=== PATIENT | male | born 1935 | race Caucasian/White ===

== ENCOUNTER 2016-06-03 01:48 | Outpatient (CLI) | payer MEDICARE, BC ==
[2016-06-03] MEDS ORDERED: SODIUM CHLORIDE FLUSH 0.9% 10 ML SYRINGE IVP PRN (08:05)
[2016-06-03] MEDS ORDERED: ONDANSETRON ODT 4 MG TABLET TL PRN (08:05)
[2016-06-03] MEDS ORDERED: ACETAMINOPHEN 325 MG TABLET PO PRN (08:05)
[2016-06-03] MEDS ORDERED: POLYETHYLENE GLYCOL 3350 17 GM PACKET PO SCH (09:00)
[2016-06-03] MEDS ORDERED: FAMOTIDINE 20 MG TABLET PO SCH (09:00)
[2016-06-03] MEDS ORDERED: SODIUM CHLORIDE 0.9% 1,000 ML IV SCH (09:00)
[2016-06-03] MEDS ORDERED: PIPERACILLIN/TAZOBACTAM 3.375 GM in SODIUM CHLORIDE 0.9% MINIBAG 100 ML IV SCH (09:00)
[2016-06-03] MEDS ORDERED: ENOXAPARIN 40 MG/0.4 ML SYRINGE SUBQ SCH (09:00)
[2016-06-03] MEDS ORDERED: SODIUM CHLORIDE FLUSH 0.9% 10 ML SYRINGE IVP SCH (14:00)
[2016-06-03] MEDS ORDERED: SACCHAROMYCES BOULARDII 250 MG CAPSULE PO SCH (17:00)
== END 2016-06-03 01:49 | disposition critical access hospital (66) ==
DX: R53.1 Weakness (principal); R11.0 Nausea
CPT/HCPCS: 87040; A0425; A0427

== ENCOUNTER 2016-06-03 02:03 | Inpatient (IN) | payer MEDICARE, BC ==
[2016-06-03] MEDS ORDERED: SODIUM CHLORIDE 0.9% 500 ML IV STA (02:25)
[2016-06-03] MEDS ORDERED: ONDANSETRON ODT 4 MG TABLET TL PRN (09:40)
[2016-06-03] MEDS ORDERED: SODIUM CHLORIDE FLUSH 0.9% 10 ML SYRINGE IVP PRN (09:40)
[2016-06-03] MEDS ORDERED: PIPERACILLIN/TAZOBACTAM 3.375 GM in SODIUM CHLORIDE 0.9% MINIBAG 100 ML IV ONE ×2 (09:40→11:30)
[2016-06-03] MEDS: SODIUM CHLORIDE 0.9% 1,000 ML IV SCH ×2 (11:41→20:46)
[2016-06-03] MEDS: FAMOTIDINE 20 MG TABLET PO SCH (11:42)
[2016-06-03] MEDS: ENOXAPARIN 40 MG/0.4 ML SYRINGE SUBQ SCH (11:42)
[2016-06-03] MEDS: amLODIPine 5 MG TABLET PO SCH ×2 (11:49→20:43)
[2016-06-03] MEDS: SODIUM CHLORIDE FLUSH 0.9% 10 ML SYRINGE IVP SCH ×2 (14:30→21:53)
[2016-06-03] MEDS: PIPERACILLIN/TAZOBACTAM 3.375 GM in SODIUM CHLORIDE 0.9% MINIBAG 100 ML IV SCH (16:33)
[2016-06-03] MEDS: SACCHAROMYCES BOULARDII 250 MG CAPSULE PO SCH (17:09)
[2016-06-03] MEDS: ACETAMINOPHEN 325 MG TABLET PO PRN (20:44)
[2016-06-03] MEDS ORDERED: amLODIPine 5 MG TABLET PO SCH (21:00)
[2016-06-04] MEDS: PIPERACILLIN/TAZOBACTAM 3.375 GM in SODIUM CHLORIDE 0.9% MINIBAG 100 ML IV SCH ×2 (00:46→08:01)
[2016-06-04] MEDS: ACETAMINOPHEN 325 MG TABLET PO PRN ×3 (00:51→21:33)
[2016-06-04] MEDS: FAMOTIDINE 20 MG TABLET PO SCH (08:12)
[2016-06-04] MEDS: SACCHAROMYCES BOULARDII 250 MG CAPSULE PO SCH ×2 (08:12→17:22)
[2016-06-04] MEDS: POLYETHYLENE GLYCOL 3350 17 GM PACKET PO SCH (08:13)
[2016-06-04] MEDS: ENOXAPARIN 40 MG/0.4 ML SYRINGE SUBQ SCH (08:13)
[2016-06-04] MEDS: amLODIPine 5 MG TABLET PO SCH ×2 (08:13→21:33)
[2016-06-04] MEDS ORDERED: POTASSIUM CHLORIDE 20 MEQ TABLET PO STA (09:43)
[2016-06-04] MEDS: SODIUM CHLORIDE FLUSH 0.9% 10 ML SYRINGE IVP SCH ×3 (09:45→21:35)
[2016-06-04] MEDS: SODIUM CHLORIDE 0.9% 1,000 ML IV SCH ×2 (10:08→22:17)
[2016-06-05] MEDS: ACETAMINOPHEN 325 MG TABLET PO PRN (02:06)
[2016-06-05] MEDS: SODIUM CHLORIDE FLUSH 0.9% 10 ML SYRINGE IVP SCH ×3 (05:30→20:28)
[2016-06-05] MEDS: amLODIPine 5 MG TABLET PO SCH ×2 (08:18→20:28)
[2016-06-05] MEDS: SODIUM CHLORIDE 0.9% 1,000 ML IV SCH (08:18)
[2016-06-05] MEDS: SACCHAROMYCES BOULARDII 250 MG CAPSULE PO SCH ×2 (08:19→17:21)
[2016-06-05] MEDS: FAMOTIDINE 20 MG TABLET PO SCH (08:19)
[2016-06-05] MEDS: ENOXAPARIN 40 MG/0.4 ML SYRINGE SUBQ SCH (08:20)
[2016-06-05] MEDS: POLYETHYLENE GLYCOL 3350 17 GM PACKET PO SCH (08:22)
[2016-06-05] MEDS ORDERED: POTASSIUM CHLORIDE INJ 40 MEQ in SODIUM CHLORIDE 0.9% 1,000 ML IV SCH (09:00)
[2016-06-05] MEDS: POTASSIUM CHLOR 10 MEQ/100 ML 100 ML IV SCH ×4 (10:10→13:50)
[2016-06-05] MEDS ORDERED: POTASSIUM CHLOR 10 MEQ/100 ML 100 ML IV SCH (14:00)
[2016-06-05] MEDS: CALCIUM CARBONATE CHEW 500 MG TABLET PO PRN (21:46)
[2016-06-06] MEDS: ACETAMINOPHEN 325 MG TABLET PO PRN ×2 (00:04→21:20)
[2016-06-06] MEDS: SODIUM CHLORIDE FLUSH 0.9% 10 ML SYRINGE IVP SCH ×3 (06:23→21:18)
[2016-06-06] MEDS: POLYETHYLENE GLYCOL 3350 17 GM PACKET PO SCH (08:43)
[2016-06-06] MEDS: SACCHAROMYCES BOULARDII 250 MG CAPSULE PO SCH ×2 (08:44→17:55)
[2016-06-06] MEDS: FAMOTIDINE 20 MG TABLET PO SCH (08:44)
[2016-06-06] MEDS: amLODIPine 5 MG TABLET PO SCH ×2 (08:45→21:18)
[2016-06-06] MEDS: ENOXAPARIN 40 MG/0.4 ML SYRINGE SUBQ SCH (08:46)
[2016-06-06] MEDS: POTASSIUM CHLOR 10 MEQ/100 ML 100 ML IV SCH ×4 (08:58→13:43)
[2016-06-06] MEDS ORDERED: MAGNESIUM HYDROXIDE 2,400 MG/30 ML UDC PO ONE (15:43)
[2016-06-06] MEDS: SENNA 8.6 MG TABLET PO SCH (17:56)
[2016-06-06] MEDS: DOCUSATE SODIUM 250 MG CAPSULE PO SCH (17:56)
[2016-06-07] MEDS: SODIUM CHLORIDE FLUSH 0.9% 10 ML SYRINGE IVP SCH ×3 (01:48→21:50)
[2016-06-07] MEDS: ACETAMINOPHEN 325 MG TABLET PO PRN ×2 (01:48→21:49)
[2016-06-07] MEDS ORDERED: POTASSIUM CHLORIDE 20 MEQ TABLET PO STA ×2 (08:25→09:35)
[2016-06-07] MEDS ORDERED: DOCUSATE SODIUM 250 MG CAPSULE PO SCH (09:00)
[2016-06-07] MEDS ORDERED: SENNA 8.6 MG TABLET PO SCH (09:00)
[2016-06-07] MEDS: POLYETHYLENE GLYCOL 3350 17 GM PACKET PO SCH (09:44)
[2016-06-07] MEDS: SENNA 8.6 MG TABLET PO SCH (09:45)
[2016-06-07] MEDS: FAMOTIDINE 20 MG TABLET PO SCH (09:45)
[2016-06-07] MEDS: amLODIPine 5 MG TABLET PO SCH ×2 (09:45→21:49)
[2016-06-07] MEDS: SACCHAROMYCES BOULARDII 250 MG CAPSULE PO SCH ×2 (09:46→17:14)
[2016-06-07] MEDS: CALCIUM CITRATE 250 MG TABLET PO SCH ×4 (09:47→23:57)
[2016-06-07] MEDS: DOCUSATE SODIUM 250 MG CAPSULE PO SCH (09:49)
[2016-06-07] MEDS: ENOXAPARIN 40 MG/0.4 ML SYRINGE SUBQ SCH (09:51)
[2016-06-07] MEDS: CALCIUM CARBONATE CHEW 500 MG TABLET PO PRN (17:14)
[2016-06-08] MEDS: ACETAMINOPHEN 325 MG TABLET PO PRN (03:26)
[2016-06-08] MEDS: SODIUM CHLORIDE FLUSH 0.9% 10 ML SYRINGE IVP SCH (06:28)
[2016-06-08] MEDS: POLYETHYLENE GLYCOL 3350 17 GM PACKET PO SCH (09:25)
[2016-06-08] MEDS: SENNA 8.6 MG TABLET PO SCH (09:26)
[2016-06-08] MEDS: FAMOTIDINE 20 MG TABLET PO SCH (09:26)
[2016-06-08] MEDS: amLODIPine 5 MG TABLET PO SCH (09:27)
[2016-06-08] MEDS: SACCHAROMYCES BOULARDII 250 MG CAPSULE PO SCH (09:27)
[2016-06-08] MEDS: DOCUSATE SODIUM 250 MG CAPSULE PO SCH (09:28)
[2016-06-08] MEDS: CALCIUM CITRATE 250 MG TABLET PO SCH (09:28)
[2016-06-08] MEDS: ENOXAPARIN 40 MG/0.4 ML SYRINGE SUBQ SCH (09:29)
== END 2016-06-08 12:47 | DRG 194 ==
DX: J18.9 Pneumonia, unspecified organism (principal); R53.1 Weakness; R06.00 Dyspnea, unspecified; Z86.12 Personal history of poliomyelitis; E87.1 Hypo-osmolality and hyponatremia; E87.6 Hypokalemia; J84.10 Pulmonary fibrosis, unspecified; E83.51 Hypocalcemia; I10 Essential (primary) hypertension; E86.0 Dehydration; R09.02 Hypoxemia; G83.21 Monoplegia of upper limb affecting right dominant side; B91 Sequelae of poliomyelitis

== ENCOUNTER 2018-04-06 15:41 | Emergency (ER) | payer MEDICARE, BC ==
[2018-04-06 15:49] VITALS: BP 149/61
--- NOTE | 2018-04-06 16:02 | ED Physician Documentation ---
PD HPI UPPER EXT INJURY - Stated complaint Stated Complaint: LF ELBOW/ARM DISCOLORATION - Chief complaint Chief Complaint: Ext Problem - History obtained from History obtained from: Patient, Family - History of Present Illness Location: Left, Elbow (This is an 83-year-old gentleman with history of pulmonary fibrosis, otherwise pretty healthy. He was taking baby aspirin a day but recently stopped. Without specific injury he felt a pulling sensation in the left medial bicep and medial elbow About 2 weeks ago with progressive ecchymosis in that area.) Review of Systems Constitutional: denies: Fever, Chills Nose: reports: Epistaxis GI: denies: Abdominal Pain, Nausea, Vomiting : reports: Reviewed and negative PD PAST MEDICAL HISTORY - Past Medical History Cardiovascular: Hypertension Respiratory: None Endocrine/Autoimmune: None GI: None : None HEENT: Chronic hearing loss Psych: None Musculoskeletal: None Derm: None - Past Surgical History Past Surgical History: Yes General: Appendectomy - Present Medications Home Medications: Ambulatory Orders Medication Instructions Recorded Confirmed amLODIPine [Norvasc] 2.5 mg PO BID 09/02/15 06/03/16 - Allergies Allergies/Adverse Reactions: Allergies Allergy/AdvReac Type Severity Reaction Status Date / Time morphine Allergy Emesis Verified 04/06/18 15:49 - Social History Does the pt smoke?: No Smoking Status: Never smoker Does the pt drink ETOH?: No Does the pt have substance abuse?: No - Immunizations Immunizations are current?: Yes PD ED PE NORMAL - Vitals Vital signs reviewed: Yes - General General: Alert and oriented X 3, No acute distress - Extremities Extremities: Other (There is a large ecchymosis from the mid to distal Left bicep medially extending down over the medial epicondyle of the elbow to the proximal forearm again medially. There is no limited range of motion. He has excellent pulses at the wrist. There is no bony tenderness. He has full strength of the bicep and tricep although some pain with bicep testing. Bedside ultrasound shows that the deep brachial vein in that area is patent and easily compressible throughout.) - Neuro Neuro: Alert and oriented X 3, Normal speech Results - Vitals Vitals: Vital Signs - 24 hr 04/06/18 15:47 Temperature 35.6 C L Heart Rate 87 Respiratory 20 Rate Blood Pressure 149/61 H O2 Saturation 95 Oxygen O2 Source [With Activity] Nasal cannula O2 Source Room air - Labs Labs: Laboratory Tests 04/06/18 04/06/18 16:06 16:06 WBC 9.8 RBC 4.14 L Hgb 13.6 L Hct 41.5 L MCV 100.2 H MCH 32.8 H MCHC 32.7 RDW 13.1 Plt Count 310 MPV 7.2 L Neut # (Auto) 6.1 Lymph # (Auto) 2.2 [place] # (Auto) 1.0 Eos # (Auto) 0.4 Baso # (Auto) 0.1 Absolute Nucleated RBC 0.00 Nucleated RBC % 0.0 PT 12.6 INR 1.1 Departure - Departure Disposition: 01 Home, Self Care Clinical Impression: Traumatic ecchymosis of left upper arm Qualifiers: Encounter type: initial encounter Qualified Code(s): S40.022A - Contusion of left upper arm, initial encounter Condition: Good Record reviewed to determine appropriate education?: Yes Instructions: ED Contusion Upper Ext Comments: Follow-up with your doctor as needed or return for new or worsening symptoms.
[2018-04-06 16:12] LABS: BASOPHILS # (AUTO) 0.1 10^3/uL (0.0-0.1); BASOPHILS % (AUTO) 1.2 %; EOSINOPHILS # (AUTO) 0.4 10^3/uL (0.0-0.7); EOSINOPHILS % (AUTO) 3.8 %; HGB - HEMOGLOBIN 13.6 g/dL (14.0-18.0); LYMPHOCYTES # (AUTO) 2.2 10^3/uL (1.5-3.5); LYMPHOCYTES % (AUTO) 22.1 %; MEAN CORPUSCULAR HEMOGLOBIN 32.8 pg (27.0-31.0); MEAN CORPUSCULAR HGB CONC 32.7 g/dL (32.0-36.0); MEAN CORPUSCULAR VOLUME 100.2 fL (80.0-94.0); MEAN PLATELET VOLUME 7.2 fL (7.4-11.4); MONOCYTES % (AUTO) 10.4 %; NEUTROPHILS # (AUTO) 6.1 10^3/uL (1.5-6.6); NEUTROPHILS % (AUTO) 62.5 %; PLT - PLATELET COUNT 310 10^3/uL (130-450); RED BLOOD COUNT 4.14 10^6/uL (4.70-6.10); RED CELL DISTRIBUTION WIDTH 13.1 % (12.0-15.0); WHITE BLOOD COUNT 9.8 x10^3/uL (4.8-10.8)
[2018-04-06 16:18] LABS: INR 1.1 (0.8-1.2); PT - PROTHROMBIN TIME 12.6 secs (9.9-12.6)
== END 2018-04-06 16:38 | disposition home or self-care (01) ==
LOC: ED 15:41
DX: S40.022A Contusion of left upper arm, initial encounter (principal); I10 Essential (primary) hypertension; J84.10 Pulmonary fibrosis, unspecified; X58.XXXA Exposure to other specified factors, initial encounter
CPT/HCPCS: 36415; 85025; 85610; 99282; 99283

== ENCOUNTER 2018-06-03 09:38 | Outpatient (CLI) | payer MEDICARE, BC | END 2018-06-03 09:39 | disposition short-term general hospital (02) | LOC: EMS 09:38 | PROVIDERS: ATTEND Surgery | DX: R55 Syncope and collapse (principal) | CPT/HCPCS: A0425; A0427 ==

== ENCOUNTER 2018-07-17 16:57 | Outpatient (CLI) | payer MEDICARE, BC | END 2018-07-17 16:58 | disposition critical access hospital (66) | LOC: EMS 16:57 | PROVIDERS: ATTEND Surgery | DX: R06.02 Shortness of breath (principal); R53.1 Weakness | CPT/HCPCS: A0425; A0429 ==

== ENCOUNTER 2018-07-17 17:13 | Inpatient (IN) | payer MEDICARE, BC ==
[2018-07-17] MEDS ORDERED: IPRATROPIUM/ALBUTEROL 3 ML NEB INH STA (17:27)
[2018-07-17] MEDS ORDERED: methylPREDNISolone SUCCINATE 125 MG/2 ML VIAL IVP STA (17:27)
[2018-07-17] MEDS ORDERED: SODIUM CHLORIDE 0.9% 1,000 ML IV ONE ×2 (17:28)
--- NOTE | 2018-07-17 17:30 | ED Physician Documentation ---
PD HPI DYSPNEA - Stated complaint Stated Complaint: SOA - Chief complaint Chief Complaint: Resp - History obtained from History obtained from: Patient, EMS - History of Present Illness Timing - onset: How many days ago (several) Timing - onset during: Rest Timing - duration: Days Timing - details: Gradual onset Pain level max: 0 Pain level now: 0 Improved by: O2, Rest Worsened by: Exertion Associated symptoms: Wheezing. No: Fever, Cough, Hemoptysis, Chest pain / discomfort, Palpitations, Diaphoresis Similar symptoms before: Diagnosis (Idiopathic pulmonary fibrosis) Recently seen: Not recently seen - Additional information Additional information: 83-year-old male with a history of pulmonary fibrosis presents with worsening dyspnea over the past week or so. He lives alone and does not use oxygen at home. O2 sat was 84 per EMS on room air. Review of Systems Ten Systems: 10 systems reviewed and negative Constitutional: denies: Fever, Chills Cardiac: denies: Chest pain / pressure Respiratory: denies: Cough GI: denies: Nausea, Vomiting, Diarrhea Skin: denies: Rash Musculoskeletal: denies: Neck pain, Back pain Neurologic: denies: Headache PD PAST MEDICAL HISTORY - Past Medical History Cardiovascular: Hypertension Respiratory: None Neuro: None Endocrine/Autoimmune: None GI: None : None HEENT: Chronic hearing loss Psych: None Musculoskeletal: None Derm: None - Past Surgical History Past Surgical History: Yes General: Appendectomy - Present Medications Home Medications: Ambulatory Orders Medication Instructions Recorded Confirmed amLODIPine [Norvasc] 2.5 mg PO BID 09/02/15 07/17/18 - Allergies Allergies/Adverse Reactions: Allergies Allergy/AdvReac Type Severity Reaction Status Date / Time morphine Allergy Emesis Verified 07/17/18 17:22 - Social History Does the pt smoke?: No Smoking Status: Never smoker Does the pt drink ETOH?: No Does the pt have substance abuse?: No - Immunizations Immunizations are current?: Yes - POLST Patient has POLST: No PD ED PE NORMAL - Vitals Vital signs reviewed: Yes - General General: Alert and oriented X 3, No acute distress - HEENT HEENT: Moist mucous membranes - Neck Neck: Supple, no meningeal sign - Cardiac Cardiac: RRR - Respiratory Respiratory: Other (Crackles bilaterally) - Abdomen Abdomen: Soft, Non tender, Non distended - Back Back: No spinal TTP - Derm Derm: Warm and dry, No rash - Extremities Extremities: No edema - Neuro Neuro: Alert and oriented X 3 - Psych Psych: Normal mood, Normal affect Results - Vitals Vitals: Vital Signs - 24 hr 07/17/18 07/17/18 07/17/18 17:16 17:26 17:46 Temperature 36.6 C Heart Rate 93 80 Respiratory 20 32 H Rate Blood Pressure 160/76 H O2 Saturation 91 L 95 07/17/18 07/17/18 07/17/18 17:48 19:26 19:40 Temperature Heart Rate 83 85 77 Respiratory 28 H 30 H 22 Rate Blood Pressure 160/76 H 163/78 H O2 Saturation 100 85 L Oxygen O2 Source [] Nasal cannula O2 Source Nasal cannula Oxygen Flow Rate 2 - EKG (time done) 1723 Rate: Rate (enter#) (83) Rhythm: NSR [place]: Normal Intervals: Prolonged VT QRS: Normal, LVH Ischemia: Normal ST segments - Labs Labs: Laboratory Tests 07/17/18 07/17/18 17:40 17:40 WBC 12.4 H RBC 4.27 L Hgb 13.4 L Hct 40.6 L MCV 95.1 H MCH 31.3 H MCHC 32.9 RDW 13.1 Plt Count 380 MPV 7.5 Neut # (Auto) 9.0 H Lymph # (Auto) 1.5 [place] # (Auto) 1.5 H Eos # (Auto) 0.2 Baso # (Auto) 0.1 Absolute Nucleated RBC 0.01 Nucleated RBC % 0.0 Sodium 136 Potassium 3.9 Chloride 99 L Carbon Dioxide 27 Anion Gap 10.0 BUN 19 Creatinine 0.6 Estimated GFR (MDRD) 128 Glucose 100 Calcium 9.0 Total Bilirubin 0.7 AST 20 ALT 13 Alkaline Phosphatase 76 Total Protein 6.7 Albumin 2.9 L Globulin 3.8 Albumin/Globulin Ratio 0.8 L Lipase 33 - Rads (name of study) cxr Radiology: Prelim report reviewed, EMP read contemporaneously, See rad report ( Chronic underlying interstitial lung disease without significant change. 2. Region of increased density in the right upper lobe possibly an area of developing consolidation. 3. Right lateral seventh rib fracture, age indeterminate. ) PD MEDICAL DECISION MAKING - ED course Complexity details: reviewed results, re-evaluated patient, considered differential, d/w patient ED course: 83-year-old male with a history of pulmonary fibrosis presents to the emergency department with hypoxia, what appears to be a new pneumonia in the right upper lobe and because of ptosis. Given steroids, DuoNeb and albuterol treatments. Also given Rocephin and azithromycin. Oxygen was removed and he promptly desaturated back down to 85% while lying in bed. Oxygen was replaced on the patient. Will admit for further care. Discussed the case with Dr. Villanueva, hospitalist who accepts. This document was made in part using voice recognition software. While efforts are made to proofread this document, sound alike and grammatical errors may occur. Departure - Departure Disposition: 66 [facility] DC/Xfer Clinical Impression: Pulmonary fibrosis, Hypoxia Pneumonia Qualifiers: Pneumonia type: due to unspecified organism Laterality: right Lung location: upper lobe of lung Qualified Code(s): J18.1 - Lobar pneumonia, unspecified organism Condition: Stable
[2018-07-17 17:50] LABS: BASOPHILS # (AUTO) 0.1 10^3/uL (0.0-0.1); BASOPHILS % (AUTO) 1.1 %; EOSINOPHILS # (AUTO) 0.2 10^3/uL (0.0-0.7); EOSINOPHILS % (AUTO) 1.8 %; HGB - HEMOGLOBIN 13.4 g/dL (14.0-18.0); LYMPHOCYTES # (AUTO) 1.5 10^3/uL (1.5-3.5); LYMPHOCYTES % (AUTO) 12.3 %; MEAN CORPUSCULAR HEMOGLOBIN 31.3 pg (27.0-31.0); MEAN CORPUSCULAR HGB CONC 32.9 g/dL (32.0-36.0); MEAN CORPUSCULAR VOLUME 95.1 fL (80.0-94.0); MEAN PLATELET VOLUME 7.5 fL (7.4-11.4); MONOCYTES # (AUTO) 1.5 10^3/uL (0.0-1.0); MONOCYTES % (AUTO) 11.9 %; NEUTROPHILS % (AUTO) 72.9 %; PLT - PLATELET COUNT 380 10^3/uL (130-450); RED BLOOD COUNT 4.27 10^6/uL (4.70-6.10); RED CELL DISTRIBUTION WIDTH 13.1 % (12.0-15.0); WHITE BLOOD COUNT 12.4 x10^3/uL (4.8-10.8)
[2018-07-17 18:00] LABS: ALBUMIN 2.9 g/dL (3.2-5.5); ALBUMIN/GLOBULIN RATIO 0.8 (1.0-2.2); BILIRUBIN,TOTAL 0.7 mg/dL (0.2-1.0); CREATININE 0.6 mg/dL (0.6-1.2); TOTAL PROTEIN 6.7 g/dL (6.7-8.2)
--- NOTE | 2018-07-17 18:42 | XRAY Report ---
Reason: dyspnea Procedure Date: 07/17/2018 Accession Number: [id number] / [id number] Procedure: XR - Chest 1 View X-Ray CPT Code: 23837 FULL RESULT: EXAM: CHEST RADIOGRAPHY EXAM DATE: 07/17/2018 05:59 PM. CLINICAL HISTORY: Dyspnea. COMPARISON: CHEST 2 VIEW PA/LAT 06/05/2016 9:36 AM. TECHNIQUE: 1 view. FINDINGS: Lungs/Pleura: Diffuse bilateral interstitial abnormality is again seen. Increased density seen in the right upper lobe. No pneumothorax. Mediastinum: Heart size and mediastinal contour are stable. Other: Right lateral seventh rib fracture, age indeterminate. IMPRESSION: 1. Chronic underlying interstitial lung disease without significant change. 2. Region of increased density in the right upper lobe possibly an area of developing consolidation. 3. Right lateral seventh rib fracture, age indeterminate. RADIA
[2018-07-17] MEDS ORDERED: AZITHROMYCIN INJ 500 MG in SODIUM CHLORIDE 0.9% 250 ML IV STA (19:28)
[2018-07-17] MEDS ORDERED: ALBUTEROL NEB 2.5 MG/3 ML INH STA (19:28)
[2018-07-17] MEDS ORDERED: cefTRIAXone 1 GM VIAL IVP STA (19:28)
[2018-07-17] MEDS ORDERED: ACETAMINOPHEN 325 MG TABLET PO PRN (19:53)
[2018-07-17] MEDS ORDERED: ONDANSETRON ODT 4 MG TABLET TL PRN (19:53)
[2018-07-17] MEDS ORDERED: oxyCODONE 5 MG TABLET PO PRN (19:53)
[2018-07-17] MEDS ORDERED: SODIUM CHLORIDE FLUSH 0.9% 10 ML SYRINGE IVP PRN (19:53)
[2018-07-17] MEDS ORDERED: ONDANSETRON 4 MG/2 ML VIAL IVP PRN (19:53)
--- NOTE | 2018-07-17 21:17 | ADVANCE CARE PLANNING NOTE ---
Advance Care Planning - Date/Time Date: 07/17/18 Time: 21:13 - Purpose of encounter Text: Explore his wishes for how aggressive he would like therapy in view of his worsening pulmonary fibrosis - Parties in attendance Parties in attendance: Patient and hospitalist - Decisional capacity Decisional capacity of: Patient is intact. He is alert and oriented. Gives a lucid history. He is exceedingly fatigued and tachypneic with conversation - Subjective/Patient's story Subjective/Patient's story: He was born in [place], and when he was "knee-high" came to live in [place] because of his father's work. 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 While there he met his . They were for 44 years did not have any children. They also had a small farm. Unfortunately she succumbed to cancer many, many years ago and he has been alone. He has been living alone for many years now. Was independent, able to do all of his activities of daily living without any help. His main emotional support is through the [employer]. His power of transactional attorney is Deniz Lynn at [phone]. Starting 4 years ago he really noticed that he was getting harder to do simple things. He has always been able to do his own laundry, do his own cooking and shopping. Drove to the grocery store, etc. Now it is taking him longer and longer to do simple things. He was hospitalized in 2013, then 2016, and most recently May 2018. He has had gradually reducing cardiopulmonary function, gradual functional ability to take care of himself. He starting to think that he needs to go to an assisted living facility. With this most recent discharge he was discharged from [facility] to [facility] facility for rehab. He does never want to go to one of those places again. He already has a POLST form. He has shared his wishes with Leah. He is starting to slowly come to the conclusion that he does not want to spend his life this way. Over the last 3 months he has become almost bedbound because of his shortness of breath and fatigue. He is very disappointed that he was just discharged and returned to home and now is back again with another pneumonia. He remembers his being taken care of by hospice for 7 months. He thinks that he would like to do that, but an assisted living facility. - Objective/Medical story Objective/Medical Story: He is an 83-year-old white male who has a past medical history of hypertension, chronic hyponatremia, vasovagal syncope October 2013, and postpolio syndrome with right arm weakness. Pulmonary fibrosis was noticed on chest x-ray starting around 2011. He has been admitted in 2013, 2017. Gradually increasing oxygen requirement at times. While he and his primary care provider have discussed his pulmonary fibrosis, he has not been referred to pulmonology and is not anxious to seek treatment or an opinion with specialty services. He is now admitted after being discharged from a chcf facility in the last 2-3 weeks. He had a pneumothorax in May 2018 and was hospitalized at [facility]. He now returns with a week of progressive coughing, shortness of breath, increasing weakness. Anorexia. He is identified as having a right lung infiltrate. Elevated white cell count. Hypoxic and tachypneic. - Goals of Care Goals of care determinations: He would like to be made as comfortable as possible without unnecessary hospitalizations. While he recognizes that he needs to be in the hospital right now because of the severity of illness and weakness, he is starting to rethink whether he wants to do this again after this hospitalization. As such he would like to see social work and start discussing end-of-life care. - Plan Plan: Social work consult for exploring assisted living facility requirements. Palliative care consultation versus hospice consultation in a patient who is strongly considering not being readmitted again Get copy of POLST. He is DO NOT RESUSCITATE. I've asked him to make sure he reiterates his wishes with Mr. Lynn and his primary care provider. - Code Status Code Status: Do Not Attempt Resuscitation - Time Spent on Advance Care Planning Time spent on advance care plannin minutes
[2018-07-17] MEDS: SODIUM CHLORIDE 0.9% 1,000 ML IV SCH (21:20)
--- NOTE | 2018-07-17 23:24 | HISTORY & PHYSICAL EXAMINATION ---
DATE OF SERVICE: 07/17/2018 Physician: Gayla Villanueva MD PRIMARY CARE PROVIDER: Dr. Collin Rosa at [facility]. ADMITTING PROVIDER: Gayla Villanueva MD CHIEF COMPLAINT: Shortness of breath with exertion and inability to take care of himself for the last few days. HISTORY OF PRESENT ILLNESS: The patient has pulmonary fibrosis. It has been noted on previous chest x-rays in the past but started getting relatively symptomatic by 2013. Between 2013 and now, he has been hospitalized for vasovagal syncope 10/2013, right lower lobe pneumonia 05/2016, and most recently 05/2018 for "a dropped lung" on the left side. With that hospitalization, he was admitted to [facility]. He and his primary care provider have discussed his worsening pulmonary disease, but he has not been referred to specialty services. He is not really clear about why other than feeling that maybe he just does not want to do this. He is very fatalistic about his overall prognosis. After having a supposed pneumothorax (I have requested those records from [facility], and they have not arrived yet), he was discharged to [facility] for [facility]. After all of the above-mentioned hospitalizations, this patient has been discharged to [facility] for [facility]. He has been home only a few weeks. He has been getting gradually worse with regard to just getting up and getting things done. While he is able to do light meals for himself, it is getting harder for him to clean his home and do the typical house chores needed to keep it tidy. He does hire someone twice a year to come in and do deep cleaning and organizing, but the rest of the time he depends on himself. His main emotional support through the buddhism. This last week has been marked by dyspnea with exertion (always chronic but recently worse), a mild nonproductive cough. He denies fever, chills. Denies aspiration or problems with swallowing. Yet he had a right lower lobe infiltrate in 05/2016 and then a right infiltrate today. When his shortness of breath got so severe that he could not take it anymore, he called an ambulance, and they brought him to the hospital. He denies chest pain, palpitations, pedal edema. He denies myalgias, fever. He does have a decreased appetite. While he has a diagnosis of pulmonary fibrosis, he is not oxygen requiring at all times. In 05/2013, he was 94% on room air. After discharge in 05/2016, he was discharged on 2 L for maintaining an O2 saturation at 95%. He was seen in the emergency room 03/2018, and he was 94% or 95% on room air. In today's visit, he was evaluated by Dr. Major Sinha. He was initially quite tachypneic in the 30s, had no fever. Normotensive. Dropping to 85%, 86% on room air. Requiring 2 L to maintain him at 92% to 95% at rest. He has received IV fluids, antibiotics, and with that he has become less and less tachypneic, and he is now in the 20s, but any movement such as transferring him from his ER gurney to his hospital bed results in tachypnea. Trying to talk to me results in tachypnea at rest. His evaluation in the emergency room shows him to have an elevated white cell count of 12.4, no left shift. He does not have a fever. Electrolytes are normal. He usually has chronic hyponatremia in the low 130s or high 120s, and it is not present today. Chest x-ray shows chronic underlying interstitial disease without much change from 2017. He has a region of increased density in the right upper lobe with developing consolidation. He has an age-indeterminate right lateral 7th rib fracture. PAST MEDICAL HISTORY 1. Hypertension. 2. Chronic hyponatremia. 3. Vasovagal syncope by description. Admitted 10/2013 for this where he had an EKG showing first-degree AV block. Chronic hyponatremia seen. During his stay, it was complicated by vertigo, and he needed rehabilitation at [facility]. Echocardiogram showed an ejection fraction of 65% to 70% with grade I diastolic dysfunction. At that time, he was 94% on room air. 4. Post-polio syndrome with right arm weakness. 5. Remote appendectomy. 6. History of skin neoplasm 7. Benign prostatic hypertrophy with LUTS 8. Chronic gait dysfunction 9. s/p cataract surgery ALLERGIES: MORPHINE. MEDICATIONS: Norvasc 2.5 mg p.o. b.i.d. SOCIAL HISTORY: Born and raised in [place]. Came to [place] when he was a young child. 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 They never had any children, and she of cancer approximately 20-25 years ago. He has lived in his own home since then. [employer] is his primary social support. He rarely drinks. Has not really drunk anything at all in 25 years. Never smoked. He does not have any history of recreational substance abuse. FAMILY HISTORY: Dad at age 62 of heart failure. Mom of old age. One brother of atrial fibrillation complications. One brother of throat cancer. He and his had no children. REVIEW OF SYSTEMS CONSTITUTIONAL: He denies constitutional complaints of fever, sweats. He does not know if he has had weight loss, but in reviewing the EMR, his weight was max 77 kg in 2013. In 2016, weight was 72.5 kg. In 03/2018, he was 68 kg, and today he is 69 kg. HEENT: Denies glaucoma. Occasionally, his vision is blurred, especially when he tries to read things. No facial asymmetry. No dysesthesia. Denies dysphagia. PULMONARY: Pulmonary fibrosis as above, with gradually worsening ability to do his activities of daily living. Usually does not have a daily cough, no chest congestion. Feels like he has been wheezing this week. CARDIAC: Denies edema, orthopnea, chest pain, palpitations, history of coronary artery disease, valvular heart disease or arrhythmias. GASTROINTESTINAL: Diminished appetite but no change in bowel habits. No change in the color of his stool. GENITOURINARY: Nocturia is occasional. Slight decreased stream. No urgency, no frequency, no flank pain, no hematuria, no dysuria. JOINTS: Mild achiness and stiffness diffusely that he attributes to arthritis and aging. Nothing severe and nothing new. SKIN: Denies any new lesions, rashes, or pruritus. PSYCHIATRIC: Lonely a little bit, starting to think about end-of-life issues. Denies severe depression, suicidal ideation or delusions or hallucinations. CENTRAL NERVOUS SYSTEM: Other than his syncope in 10/2013, no new syncope, no seizures. Mild memory loss, but he does not feel it is severe. PHYSICAL EXAMINATION VITAL SIGNS: Temperature is 36.6. Pulse is in the 70s to 80s and regular. Blood pressure is 160s/70s,. His initial respiratory rate is 32 and is now down to 22. Oxygen saturation on room air is 85%. Now, 3 L nasal cannula results in 92% saturation in his room on the floor. GENERAL: He is an alert, fatigued elderly gentleman in acute distress from tachypnea and increased respiratory effort in talking to me and transferring himself from the gurney to his bed in his room. HEAD AND NECK: Normocephalic, atraumatic skull. No facial asymmetry. Voice is slightly low and hoarse. Neck is supple with shotty anterior cervical neck adenopathy. No goiters or bruits. LUNGS: Diffuse crackles, tachypnea. No use of accessory muscles at this time yet. HEART: Regular rate and rhythm. No right ventricular lift. No murmurs, rubs or gallops. ABDOMEN: Soft, nontender. No organomegaly. Normal bowel sounds. EXTREMITIES: Thin, not with severe muscle wasting yet. He does not have gauntness or cachexia, but he is angular and thin. Again, no clubbing, cyanosis or edema. NEUROLOGIC: He is alert and oriented to person, place and time. Gives a lucid history. Cranial nerves II-XII appear grossly intact. Right arm is much weaker than left arm, but he is able to move it. Can move both legs. Can plantar and dorsiflex his feet. Can follow one-step commands. LABORATORY DATA: Usual sodium is 127 to 129. Today, it is 136. Potassium 3.9. Anion gap 10. BUN 19, creatinine 0.6. Random glucose 100. Liver enzymes normal. Albumin was 3.1 in 2017, and it is now down to 2.9. White cell count 12.4, hemoglobin 13.4, hematocrit 40.6, MCV 95. Nine neutrophils. Chest x-ray as above in history of present illness. Blood cultures have not been ordered. ASSESSMENT/PLAN 1. Acute on chronic respiratory failure with hypoxia. This is due to problem #2. This is a chronic illness that has been documented in the chart. I am unclear if any workup has been done or any workup desired on the patient's part. He is leading me to believe that he acknowledges this diagnosis but has not actively sought referral to speciality services. Plan: a. Acute inpatient admission because, in view of his old records, he has had more than a 48-hour stay, and usually results in rehabilitation. b. Attestation: The patient will be discharged within 96 hours. c. Oxygen to be maintained at lowest rate to maintain O2 saturations greater than 92%. d. Get old records or get previous records from [facility] from 05/2018. 2. Right lung pneumonia. This is an elderly gentleman who most likely has silent aspiration, as most elderly people do, but he presents with community- acquired pneumonia. His previous admission was for right sided pneumonia and this one as well. He prefers mechanical soft diet from difficulty chewing and can't quite endorse dysphagia. Plan: a. Azithromycin and Rocephin. b. Order blood cultures, even though they have been done after antibiotics were started. c. Sputum culture if able to produce sputum. d. I have explained to the patient that I anticipate a minimum of 2-3 days of IV antibiotic therapy to stabilize him. e. Swallow evaluation with speech therapy. 3. Chronic pulmonary fibrosis. Again, the patient is not interested in specialty referral. Will get old records from [facility]. Continue to provide enough oxygen to maintain O2 saturations greater than 92%. His hypoxia waxes and wanes in the medical record and he is usually not on oxygen at home. 4. Hypertension. Mildly elevated, but at 85 I am satisfied with 160s/70s. Will resume amlodipine. 5. Deep venous thrombosis prophylaxis will be thromboembolism deterrent hose. 6. DO NOT RESUSCITATE STATUS per the patient's wishes. I have asked him to contact his power of business attorney and see if we can have that POLST form incorporated into his chart. I will also ask for palliative care consultation. The patient wishes to begin end-of-life planning. He is not sure if he is ready for hospice yet but may be ready for hospice. He also wishes to talk to social work because he would like to plan going to assisted living facility. Separate advance care conversation discussion held in separate note. TD: 07/17/2018 22:01 ADDENDUM: [facility] Discharge Summary reviewed. He was admitted 06/03/18 for sudden syncope the regaining consciousness to find on set of severe left sided chest pain with worsening shortness of breath and had a chest tube placed int he emergency room. There is note that he has carotid stenosis as one of the discharge diagnosis but no reference to a specific carotid ultrasound report. Hypoxia was not present at discharge. Medications on transfer to [facility] 06/09/18 were APAP, prednisone 20 mg daily, ibuprofen 400 mg q8h prn, multivitamin, omega 3 fish oil, lactobacillus capsule daily, Vitamin D daily, and norvasc 2.5 mg po bid. 07/18/2018 06:53 MTDD
[2018-07-18] MEDS ORDERED: IBUPROFEN 400 MG TABLET PO PRN (00:20)
[2018-07-18] MEDS: IBUPROFEN 400 MG TABLET PO PRN (00:54)
[2018-07-18] MEDS: SODIUM CHLORIDE FLUSH 0.9% 10 ML SYRINGE IVP SCH ×3 (03:43→17:00)
[2018-07-18 05:29] LABS: BASOPHILS % (AUTO) 0.3 %; HGB - HEMOGLOBIN 12.5 g/dL (14.0-18.0); LYMPHOCYTES % (AUTO) 14.4 %; MEAN CORPUSCULAR HEMOGLOBIN 31.7 pg (27.0-31.0); MEAN CORPUSCULAR HGB CONC 32.9 g/dL (32.0-36.0); MEAN CORPUSCULAR VOLUME 96.3 fL (80.0-94.0); MEAN PLATELET VOLUME 7.6 fL (7.4-11.4); MONOCYTES # (AUTO) 0.2 10^3/uL (0.0-1.0); MONOCYTES % (AUTO) 2.1 %; NEUTROPHILS % (AUTO) 83.2 %; PLT - PLATELET COUNT 357 10^3/uL (130-450); RED BLOOD COUNT 3.96 10^6/uL (4.70-6.10); RED CELL DISTRIBUTION WIDTH 12.9 % (12.0-15.0); WHITE BLOOD COUNT 7.2 x10^3/uL (4.8-10.8)
[2018-07-18 05:41] LABS: CALCIUM 8.2 mg/dL (8.5-10.3); CREATININE 0.5 mg/dL (0.6-1.2)
[2018-07-18] MEDS: SODIUM CHLORIDE 0.9% 1,000 ML IV SCH (06:37)
[2018-07-18] MEDS: predniSONE 20 MG TABLET PO SCH (08:48)
[2018-07-18] MEDS: SACCHAROMYCES BOULARDII 250 MG CAPSULE PO SCH ×2 (08:49→17:02)
[2018-07-18] MEDS: amLODIPine 5 MG TABLET PO SCH ×2 (08:49→20:29)
[2018-07-18] MEDS: POLYETHYLENE GLYCOL 3350 17 GM PACKET PO SCH (08:52)
[2018-07-18] MEDS: cefTRIAXone 2 GM in SODIUM CHLORIDE 0.9% MINIBAG 100 ML IV SCH (08:54)
[2018-07-18] MEDS ORDERED: AZITHROMYCIN INJ 500 MG in SODIUM CHLORIDE 0.9% 250 ML IV SCH (09:00)
[2018-07-18] MEDS: AZITHROMYCIN INJ 500 MG in SODIUM CHLORIDE 0.9% 250 ML IV SCH (10:11)
--- NOTE | 2018-07-18 10:36 | MISCELLANEOUS PROVIDER NOTE ---
Miscellaneous Provider Note - - Note: Subjective: Patient seen at bedside with improved respiratory function on supplemental oxygenation. Patient has a history of pulmonary fibrosis with interstitial lung disease. Patient denies pleuritic chest pain, fevers, GI or symptoms, maculopapular rash, joint tenderness or swelling. Objective: Vital signs hemodynamically stable afebrile nontachypneic non- tachycardic blood pressure 146/61. RR 30. 94% O2 saturation on 3 L nasal cannula next General: Patient is chronically ill-appearing in no acute respiratory distress speaking full sentences on supplemental oxygen. Slightly cachectic. Next HEENT: Pupils are equal round react light and accommodation, extraocular muscles are bilateral intact, NCAT, no ptosis, no oropharynx lesion. Neck: No JVD no bruits no lymphadenopathy, no thyromegaly CV/lungs: RRR. S1-S2 within normal limits. No murmurs gallops clicks or rubs. Decreased breath sounds more to the right versus the left with prolonged expiratory phase faint rales bibasilarly. No increased work of breath no retractions no wheezing. Abdomen: Soft nontender nondistended positive bowel sounds all quadrants. No hepatosplenomegaly. Extremities/skin: No edema clubbing or cyanosis. 2+ pulses dorsalis pedis. No lesions. No maculopapular rashes. Neuro: Grossly intact Labs: Reviewed Imaging studies: Reviewed Assessment/plan: 1. Acute on chronic respiratory failure with hypoxemia non-oxygen dependent -Underlying pulmonary fibrosis with interstitial lung disease with no apparent recurrence of spontaneous pneumothorax, Continue with treatment of underlying RUL PNA, With Rocephin and azithromycin along with pulmonary toileting nebulizers, steroids, spirometry. Oxygenation at 3 L nasal cannula currently. We will obtain old records from previous admission [facility] from 05/31. 2. Right upper lobe pneumonia deemed to be community acquired pneumonia -however patient from a memory care unit home place, Currently on azithromycin/Rocephin. His previous admission was for right-sided pneumonia and this 1 seems to be similar for which he prefers mechanical soft diet from difficulty chewing NCAT quite endorsed dysphagia. However speech pathology to officially evaluate patient for swallowing function and perhaps recommend for food consistency. -Follow-up blood cultures as well as sputum Gram stain and culture -Continue with optimal optimizing respiratory function with spirometry, nebs, possible flutter valve and expectorants. 3. Chronic pulmonary fibrosis with ILD and prior hx of spontaneous PMTX -Continue with supplemental oxygenation, steroids, medical management for now. His hypoxemia waxes and wanes in the medical records and he is using not on oxygen at home. Patient may need official RT evaluation for home oxygen use whether during the day or at nighttime. Next 4. Hypertension -We will continue with amlodipine, IV hydralazine as needed with parameters 5. Normocytic normochromic anemia -No evidence of GI bleeding, obtain iron studies throughout this admission 6. History of vasovagal syncope with multiple falls -Physical therapy to evaluate will place on mid a drain as needed with parameters 7. History of multiple falls with a current right lateral 7th rib fracture -Physical therapy to make recommendations for range of motion, strengthening, balance and gait and possible durable medical equipments CODE STATUS: DNR. Per the patient's wishes dioni Reynoldsest has discussed power of admitted attorneys and see if we can have that [address] form incorporate into his chart. Palliative care consultation. The patient wishes to begin end-of-life care. He is not sure if he is ready for hospice yet, But will have that conversation soon with palliative. He also wishes to talk drug abuse social worker because he would like to plan going to assisted living facility.
[2018-07-18] MEDS ORDERED: MIDODRINE 2.5 MG TABLET PO PRN (10:37)
[2018-07-18 11:34] LABS: % IRON SATURATION 8 % (20-50); IRON 16 ug/dL (45-182); TOTAL IRON BINDING CAPACITY 196 ug/dL (250-450); TRANSFERRIN 140 mg/dL (180-329)
--- NOTE | 2018-07-18 15:19 | CONSULTATION NOTE ---
Palliative Care Consultation - Referral Referring Provider: Dr. Milo Britt Time of Visit: [id number];13:45-1500 Referral setting: Hospitalized patient Referral Reason: Pulmonary Fibrosis/RUL pneumonia/Goals of Care - Information Sources Records reviewed: RN notes reviewed, Previous records reviewed History/Review of Systems obtained from: Patient Exam limitations: No limitations - History of Present Illness Brief History of Present Illness: This is a isabelle 83-year-old gentleman who has pulmonary fibrosis, who is not followed by pulmonology. He has had a slow decline over time, both functionally, and with increased breathlessness over the last several years. Most rapidly exacerbated this last May with a spontaneous pneumothorax on 06/03/2018, Is admitted to [facility] at this time and discharged on 06/09 to [facility]. He was at home for several weeks with increasing shortness of breath, decreased activity tolerance, increased cough and finally himself called 911 precipitating his admit here to [facility]. He was diagnosed with acute on chronic respiratory failure with hypoxia, right upper lung pneumonia, and exacerbation with his underlying pulmonary fibrosis. He did present originally with an elevated WBC. Because of his acute and ongoing decline, he is to transition to an assisted living facility, this sounds appropriate in the context of his current ability with ADLs, expected ongoing decline, in preparation for transitioning at some point to hospice for end-of-life care. Patient sees Dr. LAURI HOPKINS, who is been his primary care provider for about 23 years. He needed oxygen in his last hospitalization, but prior to discharge was no longer oxygen dependent. He does present with hypoxia at this point in time, and may need to be evaluated for oxygen on discharge. He would very much like to have a hospital bed as well as he is more comfortable sitting upright for breathing, and ease of transfers. Palliative care is meeting with patient to define goals of care, consider transitioning planning, and establish rapport for following in the outpatient setting. Medical/Surgical History - Past Medical History Cardiovascular: reports: Hypertension, Other (carotid artery stenosis and occlusion documented at [facility]) Respiratory: reports: Shortness of breath, Other (Pulmonary Fibrosis; recent pneumothorax 06/03/2018) Neuro: None Endocrine/Autoimmune: reports: None GI: reports: None : reports: Benign prostate hypertrophy HEENT: reports: Chronic hearing loss Psych: reports: None Musculoskeletal: reports: None, Other (right arm weakness r/t polio syndrome) Derm: reports: None MRSA Hx?: No Other Past Medical History: Pneumo. Pulmonary fibrosis. 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 - Past Surgical History General: reports: Appendectomy - Substance History Use: Uses substance without health or social issues: NONE Social History - Living Situation Living arrangement: At home Living Situation: Alone Family History - Family History Family History: Mother: (62 heart failure, mother old age), Father: Medications/Allergies - Medications Active Medication List: Active Medications Acetaminophen (Tylenol) 650 mg PO Q4HR PRN PRN Reason: Pain 1 to 4 Albuterol () 2.5 mg INH Q4HR PRN PRN Reason: Wheezing Amlodipine Besylate (Norvasc) 2.5 mg PO BID [facility] Last Admin: 07/18/18 08:49 Dose: 2.5 mg Budesonide (Pulmicort) 0.5 mg INH RTBID [facility] Formoterol Fumarate (Perforomist) 20 mcg INH RTBID [facility] Sodium Chloride (Normal Saline 0.9%) 1,000 mls @ 100 mls/hr IV .Q10H [facility] Stop: 07/18/18 15:59 Last Admin: 07/18/18 06:37 Dose: Not Given Ceftriaxone Sodium 2 gm/ (Sodium Chloride) 100 mls @ 200 mls/hr IV DAILY [facility] Last Infusion: 07/18/18 09:30 Dose: Infused Azithromycin 500 mg/ Sodium (Chloride) 250 mls @ 250 mls/hr IV DAILY@1000 SHANELL Last Admin: 07/18/18 10:11 Dose: 250 mls/hr Ibuprofen (Motrin) 400 mg PO Q6HR PRN PRN Reason: PAIN Last Admin: 07/18/18 00:54 Dose: 400 mg Midodrine () 10 mg PO TID PRN PRN Reason: SBP<100 Montelukast Sodium (Singulair) 10 mg PO QPM [facility] Ondansetron HCl (Zofran Inj) 4 mg IVP Q6HR PRN PRN Reason: Nausea / Vomiting Ondansetron HCl (Zofran Odt) 4 mg TL Q6HR PRN PRN Reason: Nausea / Vomiting Oxycodone HCl (Roxicodone) 5 mg PO Q4HR PRN PRN Reason: Pain 5 to 7 Polyethylene Glycol (Miralax) 17 gm PO DAILY [facility] Last Admin: 07/18/18 08:52 Dose: 17 gm Prednisone (Deltasone) 60 mg PO DAILYWM [facility] Last Admin: 07/18/18 08:48 Dose: 60 mg Saccharomyces Boulardii (Florastor) 250 mg PO BIDWM [facility] Last Admin: 07/18/18 08:49 Dose: 250 mg Sodium Chloride (Normal Saline Flush 0.9%) 10 ml IVP PRN PRN PRN Reason: NEEDED PER PROVIDER ORDERS Last Admin: 07/18/18 08:55 Dose: 10 ml Sodium Chloride (Normal Saline Flush 0.9%) 10 ml IVP 0100,0900,1700 [facility] Last Admin: 07/18/18 09:21 Dose: Not Given amLODIPine [Norvasc] 2.5 mg PO BID 09/02/15 - Allergies Allergies/Adverse Reactions: Allergies Allergy/AdvReac Type Severity Reaction Status Date / Time morphine Allergy Emesis Verified 07/17/18 17:22 Review of Systems - Constitutional Constitutional: reports: Fatigue, Weight loss (patient reports lost 12 pounds since May; attributes to stay at SNF) - Ears, Nose & Throat Ears, Nose & Throat: reports: Hearing loss, Hearing aids, Dry mouth - Cardiovascular Cardiovascular: reports: Lightheadedness, Exertional dyspnea, Decr. exercise tolerance, Orthopnea - Respiratory Respiratory: reports: Cough (in ams mostly), Sputum production (clear), Orthopnea, SOB at rest, SOB with exertion - Gastrointestinal Gastrointestinal: reports: Good appetite - Genitourinary Genitourinary: reports: Frequency - Musculoskeletal Musculoskeletal: reports: Stiffness, Muscle weakness, Assistive devices (walker), Other (anxious about keeping strength up; requesting PT while here; does not want to go to SNF; lost what he had gained with acute illness this last week) - Integumentary Integumentary: reports: Dryness - Neurological Neurological: reports: General weakness, Dizziness. denies: Memory problems - Psychiatric Psychiatric: denies: Depression, Anxiety - Hematologic/Lymphatic Hematologic/Lymphatic: reports: Anemia - All Other Systems All Other Systems: reports: Reviewed and negative Physical Exam - Vital Signs Vital Signs: Vital Signs x48h Temp Pulse Pulse Pulse Pulse Resp BP 07/18/18 13:41 80 89 79 04/08/19 09:21 36.2 C L 73 20 135/54 H 07/18/18 07:42 36.4 C L 83 18 182/71 H BP BP BP Pulse Ox 07/18/18 13:41 127/56 L 108/57 L 118/51 L 07/18/18 09:21 98 07/18/18 07:42 98 - Physical Exam General Appearance: positive: Mild distress (with conversation; gets fatigued an d breathless) Eyes Bilateral: positive: Normal inspection ENT: positive: No signs of dehydration Neck: positive: No JVD, Trachea midline Cardiovascular: positive: Regular rate & rhythm Respiratory: positive: Diminished in bases Abdomen: positive: Soft Skin: positive: Pallor, Dryness Extremities: positive: No pedal edema Neurologic/Psychiatric: positive: Oriented x3, Mood/affect nml, Weakness, Flat affect Palliative Care - POLST Patient has POLST: Yes POLST Status: DNR (patient to have friend bring his in;) Pain: No pain Tiredness/Fatigue: Severe (7-10) Drowsiness/Sedation: Moderate (4-6) Nausea: None Depression: Mild (1-3) Anxiety: Mild (1-3) Dyspnea: Severe (7-10) Anorexia: Mild (1-3) Sleep: Variable sleep pattern Constipation: No Feelings of wellbeing/Perceived Quality of Life: Fair, Worsening Performance Status: Patient reports since most the time in the recliner, would put him at a PPS of 40% and ambulates to the bathroom into the kitchen short distances of 10-15 feet with severe breathlessness. This is worsened as far as activity tolerance over the last few days, precipitating his call to 911. He has had functional decline over several months, most acutely with recent hospitalization and [facility]. He did regain some of his strength, is very fearful of becoming weaker and more dependent. He is feeling like the hospital bed is helping, particularly with his breathing, it is more comfortable sitting up, oxygen is new as well. - Palliative Care Discussion: Patient's understanding of his illness, his that he does have pulmonary fibrosis, that is continuing to progress. His primary care provider told him about 1 or 2 years ago, prognosis was about for 5 years. He did acknowledge though that with his most recent hospitalization in May now, is feeling much more fragile. His social support network, I is mostly his jain. He has identified Deniz Horr [phone], as his DPOA, Did request that we get the paperwork. Patient is wanting to transition to assisted living, he has been considering , though he has not done a tour. He has heard good things about this. His perception is he could get support there, get hospital bed to assist with his transfers, and looking at getting a power scooter to be able to get up and down to meals. His did of cancer in 2012, she at home with hospice support. When asked if he thought he were coming into the realm of end of life, and would consider hospice, he felt like that was a little premature. But did admit that things were getting more difficult, and things were happening that are of concern for a quicker demise. He does say "I am a loner", has spent most of his time by himself particularly since his has . He was born in [place], and had moved to [facility]. 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 Prior to his most recent decline, he did do woodworking as a hobby and made furniture. 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 We talked about end of life, he says "I do not want to be here with my current quality of life". "I just want to go" "I am ready to go today". He denies suicidality, does not perceive himself as depressed, but does not find many things that bring him narinder and comfort at this point in time. He has been a member of the [facility] jain and community for over 12 years, he does have a strong marta and is not afraid of dying. We discussed the role of palliative care versus hospice, at this point in time it appears his goals align more with palliative in nature. If he were to have an acute decline, or be in a position where he would need to be more dependent, he would not want his life prolonged and/or his suffering. He very much disliked being at the long-term, this would not be quality of life for him as well if he needs to be placed and was dependent. Did spend time talking about the [facility], the nuances between selective treatments and comfort measures. He will get his old form, and we will revisit to see if this needs to be updated. He is very clear he is a DNA R/allow natural . He will also try and obtain the [facility] [employer] paperwork for his records here at the hospital. I spoke with his DPO English Composition Instructor Deniz MC. He and his are actually going to [place] this afternoon to meet with admissions at [place]. He is planning to gather information and help patient in the [facility] for finding a assisted living facility to better support him. He reports he has seen ongoing functional decline, does feel patient has mental clarity and is able to make his own decisions, but given his frailty does need assistance with carrying out his plan.Did inform him of our conversation and status, need to update [facility], he will try and find old form and bring it in. Results - Lab Results Lab results reviewed: Yes Fish Bones: 07/18/18 05:10 07/18/18 05:05 Lab and Imaging Results: Lab Results x24hrs 07/18/18 07/18/18 07/18/18 Range/Units Unknown 05:10 05:05 WBC 7.2 (4.8-10.8) x10^3/uL RBC 3.96 L (4.70-6.10) 10^6/uL Hgb 12.5 L (14.0-18.0) g/dL Hct 38.1 L (42.0-52.0) % MCV 96.3 H (80.0-94.0) fL MCH 31.7 H (27.0-31.0) pg MCHC 32.9 (32.0-36.0) g/dL RDW 12.9 (12.0-15.0) % Plt Count 357 (130-450) 10^3/uL MPV 7.6 (7.4-11.4) fL Neut # (Auto) 6.0 (1.5-6.6) 10^3/uL Lymph # (Auto) 1.0 L (1.5-3.5) 10^3/uL Bibb # (Auto) 0.2 (0.0-1.0) 10^3/uL Eos # (Auto) 0.0 (0.0-0.7) 10^3/uL Baso # (Auto) 0.0 (0.0-0.1) 10^3/uL Absolute Nucleated RBC 0.00 x10^3/uL Nucleated RBC % 0.0 /100WBC Sodium 138 (135-145) mmol/L Potassium 3.6 (3.5-5.0) mmol/L Chloride 103 (101-111) mmol/L Carbon Dioxide 26 (21-32) mmol/L Anion Gap 9.0 (6-13) BUN 13 (6-20) mg/dL Creatinine 0.5 L (0.6-1.2) mg/dL Estimated GFR (MDRD) 158 (>89) Glucose 129 H (70-100) mg/dL Calcium 8.2 L (8.5-10.3) mg/dL Iron 16 L (45-182) ug/dL TIBC 196 L (250-450) ug/dL % Saturation 8 L (20-50) % Transferrin 140 L (180-329) mg/dL Total Bilirubin (0.2-1.0) mg/dL AST (10-42) IU/L ALT (10-60) IU/L Alkaline Phosphatase (42-121) IU/L Total Protein (6.7-8.2) g/dL Albumin (3.2-5.5) g/dL Globulin (2.1-4.2) g/dL Albumin/Globulin Ratio (1.0-2.2) Lipase (22-51) U/L 07/17/18 07/17/18 Range/Units 17:40 17:40 WBC 12.4 H (4.8-10.8) x10^3/uL RBC 4.27 L (4.70-6.10) 10^6/uL Hgb 13.4 L (14.0-18.0) g/dL Hct 40.6 L (42.0-52.0) % MCV 95.1 H (80.0-94.0) fL MCH 31.3 H (27.0-31.0) pg MCHC 32.9 (32.0-36.0) g/dL RDW 13.1 (12.0-15.0) % Plt Count 380 (130-450) 10^3/uL MPV 7.5 (7.4-11.4) fL Neut # (Auto) 9.0 H (1.5-6.6) 10^3/uL Lymph # (Auto) 1.5 (1.5-3.5) 10^3/uL Bibb # (Auto) 1.5 H (0.0-1.0) 10^3/uL Eos # (Auto) 0.2 (0.0-0.7) 10^3/uL Baso # (Auto) 0.1 (0.0-0.1) 10^3/uL Absolute Nucleated RBC 0.01 x10^3/uL Nucleated RBC % 0.0 /100WBC Sodium 136 (135-145) mmol/L Potassium 3.9 (3.5-5.0) mmol/L Chloride 99 L (101-111) mmol/L Carbon Dioxide 27 (21-32) mmol/L Anion Gap 10.0 (6-13) BUN 19 (6-20) mg/dL Creatinine 0.6 (0.6-1.2) mg/dL Estimated GFR (MDRD) 128 (>89) Glucose 100 (70-100) mg/dL Calcium 9.0 (8.5-10.3) mg/dL Iron (45-182) ug/dL TIBC (250-450) ug/dL % Saturation (20-50) % Transferrin (180-329) mg/dL Total Bilirubin 0.7 (0.2-1.0) mg/dL AST 20 (10-42) IU/L ALT 13 (10-60) IU/L Alkaline Phosphatase 76 (42-121) IU/L Total Protein 6.7 (6.7-8.2) g/dL Albumin 2.9 L (3.2-5.5) g/dL Globulin 3.8 (2.1-4.2) g/dL Albumin/Globulin Ratio 0.8 L (1.0-2.2) Lipase 33 (22-51) U/L Impression and Recommendations - Palliative Care Impression: This is an 83-year-old gentleman who presents acutely with acute on chronic respiratory failure with hypoxia, right upper lobe pneumonia, functional decline, and moderate to high symptom burden. Goal of this hospitalization is for patient to stabilize, develop transition plan to most likely include trans ition to assisted living facility, as well as develop long-term plan regarding ongoing expected decline. Palliative care meeting with patient to establish goals of care, rapport, and counseling for the continuum of care. Recommendations/Counseling Done: 1. Idiopathic pulmonary fibrosis. Patient is of advanced age, now on his second hospitalization, as well as has had functional decline, and presents with progressive dyspnea even when not acutely ill. Patient has not been formally staged, do not have FVC% to put in prognostic mortality index, but suspect moderate to severe. Will f/up with PCP to see if has any recent testing to assist with this. Patient will be evaluated for oxygen on discharge, also would benefit from hospital bed for positioning head of bed up secondary to orthopnea and for ease of transferring. 2. Generalized weakness. Patient would like to participate fairly aggressively in physical therapy while he is here, does not want to transition to a SNF again. Counseling provided and encouraged him to be up in the chair, and have nursing aides her nurses walk with him when he is feeling that he has the stamina, he is very compromised currently, and reviewed pacing activities. 3. Advanced care planning. Patient does perceive he is declining, and he does present with significant frailty. He acknowledges the need to transition to a more supportive setting, is exploring assisted living and asked specifically [facility]. [facility] does do hospice and end-of-life care, this would be a good fit in the context of this. Patient does not perceive himself in the hospice category yet, but does understand the seriousness of his illness and able to acknowledge his ongoing decline. Counseling provided regarding the role of palliative care, this was introduced to his D POA as well. Will obtain outpatient referral to follow him in his new setting. Patient to obtain copy of his [facility] at home, reviewed form and counseling provided regarding the nuances, his goals in the context of his current situation, and will revisit tomorrow. Time Spent: 85 minutes with greater than 50% of this done in counseling regarding goals of care coordination of care with hospitalist, GURDEEP, and DANIE Del Rosario
[2018-07-18] MEDS: FORMOTEROL FUMARATE NEB 20 MCG/2 ML INH SCH (20:02)
[2018-07-18] MEDS: BUDESONIDE 0.5 MG/2 ML NEB INH SCH (20:02)
[2018-07-18] MEDS: ALBUTEROL NEB 2.5 MG/3 ML INH PRN (20:03)
[2018-07-18] MEDS: MONTELUKAST 10 MG TABLET PO SCH (20:30)
[2018-07-19] MEDS: IBUPROFEN 400 MG TABLET PO PRN ×2 (00:15→21:31)
[2018-07-19] MEDS: SODIUM CHLORIDE FLUSH 0.9% 10 ML SYRINGE IVP SCH ×4 (00:29→23:50)
[2018-07-19 05:44] LABS: BASOPHILS % (AUTO) 0.2 %; EOSINOPHILS % (AUTO) 0.1 %; HGB - HEMOGLOBIN 11.6 g/dL (14.0-18.0); LYMPHOCYTES # (AUTO) 2.3 10^3/uL (1.5-3.5); MEAN CORPUSCULAR HEMOGLOBIN 31.7 pg (27.0-31.0); MEAN CORPUSCULAR HGB CONC 32.5 g/dL (32.0-36.0); MEAN CORPUSCULAR VOLUME 97.4 fL (80.0-94.0); MEAN PLATELET VOLUME 7.6 fL (7.4-11.4); MONOCYTES # (AUTO) 1.3 10^3/uL (0.0-1.0); MONOCYTES % (AUTO) 8.7 %; NEUTROPHILS # (AUTO) 11.6 10^3/uL (1.5-6.6); PLT - PLATELET COUNT 358 10^3/uL (130-450); RED BLOOD COUNT 3.68 10^6/uL (4.70-6.10); WHITE BLOOD COUNT 15.3 x10^3/uL (4.8-10.8)
[2018-07-19 05:52] LABS: CALCIUM 8.4 mg/dL (8.5-10.3); CREATININE 0.3 mg/dL (0.6-1.2)
[2018-07-19] MEDS: ALBUTEROL NEB 2.5 MG/3 ML INH PRN (07:30)
[2018-07-19] MEDS: BUDESONIDE 0.5 MG/2 ML NEB INH SCH ×2 (07:30→19:41)
[2018-07-19] MEDS: FORMOTEROL FUMARATE NEB 20 MCG/2 ML INH SCH ×2 (07:30→19:41)
[2018-07-19] MEDS: POLYETHYLENE GLYCOL 3350 17 GM PACKET PO SCH (08:42)
[2018-07-19] MEDS: SACCHAROMYCES BOULARDII 250 MG CAPSULE PO SCH ×2 (08:44→16:37)
[2018-07-19] MEDS: predniSONE 20 MG TABLET PO SCH (08:44)
[2018-07-19] MEDS: DOCUSATE SODIUM 250 MG CAPSULE PO SCH (08:44)
[2018-07-19] MEDS: amLODIPine 5 MG TABLET PO SCH ×2 (08:44→21:31)
[2018-07-19] MEDS: cefTRIAXone 2 GM in SODIUM CHLORIDE 0.9% MINIBAG 100 ML IV SCH ×2 (08:49→09:45)
[2018-07-19] MEDS: SENNA 8.6 MG TABLET PO SCH (08:54)
[2018-07-19] MEDS: AZITHROMYCIN INJ 500 MG in SODIUM CHLORIDE 0.9% 250 ML IV SCH (09:40)
--- NOTE | 2018-07-19 10:00 | PROVIDER PROGRESS NOTE ---
Assessment/Plan - Problem List (1) CAP (community acquired pneumonia) Assessment/Plan: vs Aspiration PNA Continue antibiotics. Await cx results. (2) Pulmonary fibrosis Assessment/Plan: Continue pulmonary toilet, nebs and steroids. The steroids are likely the reason for rising WBC. Will assess for need for O2 with an oximetry study by RT on the day of DCh, in 1-2 days. (3) Rib fracture Qualifiers: Encounter type: subsequent encounter Rib fracture type: single rib Fracture type: closed Laterality: right Fracture healing: with routine healing Qualified Code(s): S22.31XD - Fracture of one rib, right side, subsequent encounter for fracture with routine healing Assessment/Plan: Pain meds as needed. 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 He did have syncope in 2013. Currently not orthostatic, is needing Midodrine. Will decrease postural VS checks from q shift to daily in a.m. (5) Hypokalemia Assessment/Plan: Replace. Follow BMP daily. (6) Anemia Qualifiers: Anemia type: iron deficiency Assessment/Plan: Probably from hemodilution. Will check B12, Folate. Iron panel showed Fe low, and guiac stool is pending. Replace Fe and await other labs results to replace if levels low. (7) Post-polio syndrome Assessment/Plan: The patient has had R sided weakness, this may also be contributing to falls. PT working with patient. (8) Restless leg syndrome Assessment/Plan: He took an OTC med, but Pharmacy checked the ingredients and it contains PoisonIvy and other toxic herbs. Will add Requip prn at hs. - Current Meds Current Meds: Current Medications Generic Name Dose Route Start Last Admin Trade Name Freq PRN Reason Stop Dose Admin Albuterol 2.5 mg 07/17/18 19:57 07/19/18 07:30 INH 2.5 mg Q4HR PRN Administration Wheezing Amlodipine Besylate 2.5 mg 07/18/18 09:00 07/19/18 08:44 Norvasc PO 2.5 mg BID SHANELL Administration Budesonide 0.5 mg 07/18/18 19:00 07/19/18 07:30 Pulmicort INH 0.5 mg RTBID SHANELL Administration Docusate Sodium 250 - 500 mg 07/19/18 09:00 07/19/18 08:44 Colace 250mg Capsule PO 250 mg DAILY SHANELL Administration Formoterol Fumarate 20 mcg 07/18/18 19:00 07/19/18 07:30 Perforomist INH 20 mcg RTBID SHANELL Administration Ceftriaxone Sodium 2 gm/ 100 mls @ 200 mls/hr 07/18/18 09:00 07/19/18 09:45 Sodium Chloride IV 200 mls/hr DAILY SHANELL Administration Azithromycin 500 mg/ Sodium 250 mls @ 250 mls/hr 07/18/18 10:00 07/19/18 09:40 Chloride IV 250 mls/hr DAILY@1000 SHANELL Administration Ibuprofen 400 mg 07/18/18 00:20 07/19/18 00:15 Motrin PO 400 mg Q6HR PRN Administration PAIN Montelukast Sodium 10 mg 07/18/18 21:00 07/18/18 20:30 Singulair PO 10 mg QPM SHANELL Administration Polyethylene Glycol 17 gm 07/18/18 09:00 07/19/18 08:42 Miralax PO 17 gm DAILY SHANELL Administration Prednisone 60 mg 07/18/18 08:00 07/19/18 08:44 Deltasone PO 60 mg DAILYWM SHANELL Administration Saccharomyces Boulardii 250 mg 07/18/18 08:00 07/19/18 08:44 Florastor PO 250 mg BIDWM SHANELL Administration Senna 8.6 - 17.2 mg 07/19/18 09:00 07/19/18 08:54 Senokot PO 8.6 mg DAILY SHANELL Administration Sodium Chloride 10 ml 07/17/18 19:53 07/18/18 08:55 Normal Saline Flush 0.9% IVP 10 ml PRN PRN Administration NEEDED PER PROVIDER ORDERS Sodium Chloride 10 ml 07/18/18 01:00 07/19/18 08:53 Normal Saline Flush 0.9% IVP 20 ml 0100,0900,1700 SHANELL Administration - Lab Result Fish Bone Diagrams: 07/19/18 05:05 07/19/18 05:05 Subjective - Subjective Patient Reports: Feeling Better, Resting Comfortably Objective Vital Signs: Vital Signs - 24 hr 07/18/18 07/18/18 07/18/18 13:41 15:45 18:00 Temperature 36.3 C L Heart Rate Heart Rate [ 65 Brachial] Heart Rate [ 80 72 Sitting (After 1 Minute)] Heart Rate [ 89 84 Standing (After 1 Minute)] Heart Rate [ 79 71 Supine] Respiratory 18 Rate Blood Pressure [Left Brachial artery] Blood Pressure 142/56 H [Right Brachial artery] Blood Pressure 127/56 L 149/57 H [Sitting (After 1 Minute)] Blood Pressure 108/57 L 136/57 H [Standing ( After 1 Minute) ] Blood Pressure 118/51 L 140/56 H [Supine] O2 Saturation 98 07/18/18 07/18/18 07/19/18 20:05 23:35 07:30 Temperature 36.4 C L Heart Rate 69 62 Heart Rate [ 65 Brachial] Heart Rate [ 75 Sitting (After 1 Minute)] Heart Rate [ 80 Standing (After 1 Minute)] Heart Rate [ 65 Supine] Respiratory 18 18 16 Rate Blood Pressure 149/60 H [Left Brachial artery] Blood Pressure [Right Brachial artery] Blood Pressure 143/67 H [Sitting (After 1 Minute)] Blood Pressure 156/58 H [Standing ( After 1 Minute) ] Blood Pressure 149/60 H [Supine] O2 Saturation 94 07/19/18 07/19/18 08:20 09:37 Temperature 36.5 C Heart Rate Heart Rate [ 73 Brachial] Heart Rate [ 72 Sitting (After 1 Minute)] Heart Rate [ 78 Standing (After 1 Minute)] Heart Rate [ 67 Supine] Respiratory 16 Rate Blood Pressure 126/59 L [Left Brachial artery] Blood Pressure [Right Brachial artery] Blood Pressure 142/57 H [Sitting (After 1 Minute)] Blood Pressure 133/55 H [Standing ( After 1 Minute) ] Blood Pressure 142/53 H [Supine] O2 Saturation 98 Oxygen O2 Source [With Activity] Nasal cannula O2 Source Nasal cannula Oxygen Flow Rate 2 I&O (Last 24 Hrs): Intake and Output Totals x24h 07/17/18 07/18/18 07/19/18 23:59 23:59 23:59 Intake Total 1945 2287 780 Output Total 550 825 200 Balance 1395 1462 580 General: Alert, Oriented x3 HEENT: Mucous membr. moist/pink Neck: Supple Neuro: Other (R arm weak) Cardiovascular: Regular rate Respiratory: No respiratory distress, Other (Velcro rales bilaterally.) Abdomen: Soft Extremities: No edema - Results Results: Laboratory Results WBC 15.3 x10^3/uL (4.8-10.8) H 07/19/18 05:05 RBC 3.68 10^6/uL (4.70-6.10) L 07/19/18 05:05 Hgb 11.6 g/dL (14.0-18.0) L 07/19/18 05:05 Hct 35.8 % (42.0-52.0) L 07/19/18 05:05 MCV 97.4 fL (80.0-94.0) H 07/19/18 05:05 MCH 31.7 pg (27.0-31.0) H 07/19/18 05:05 MCHC 32.5 g/dL (32.0-36.0) 07/19/18 05:05 RDW 13.0 % (12.0-15.0) 07/19/18 05:05 Plt Count 358 10^3/uL (130-450) 07/19/18 05:05 MPV 7.6 fL (7.4-11.4) 07/19/18 05:05 Neut # (Auto) 11.6 10^3/uL (1.5-6.6) H 07/19/18 05:05 Lymph # (Auto) 2.3 10^3/uL (1.5-3.5) 07/19/18 05:05 [place] # (Auto) 1.3 10^3/uL (0.0-1.0) H 07/19/18 05:05 Eos # (Auto) 0.0 10^3/uL (0.0-0.7) 07/19/18 05:05 Baso # (Auto) 0.0 10^3/uL (0.0-0.1) 07/19/18 05:05 Absolute Nucleated RBC 0.01 x10^3/uL 07/19/18 05:05 Nucleated RBC % 0.1 /100WBC 07/19/18 05:05 Sodium 139 mmol/L (135-145) 07/19/18 05:05 Potassium 3.2 mmol/L (3.5-5.0) L 07/19/18 05:05 Chloride 105 mmol/L (101-111) 07/19/18 05:05 Carbon Dioxide 27 mmol/L (21-32) 07/19/18 05:05 Anion Gap 7.0 (6-13) 07/19/18 05:05 BUN 15 mg/dL (6-20) 07/19/18 05:05 Creatinine 0.3 mg/dL (0.6-1.2) L 07/19/18 05:05 Estimated GFR (MDRD) 285 (>89) 07/19/18 05:05 Glucose 103 mg/dL (70-100) H 07/19/18 05:05 Calcium 8.4 mg/dL (8.5-10.3) L 07/19/18 05:05 Iron 16 ug/dL (45-182) L 07/18/18 Unknown TIBC 196 ug/dL (250-450) L 07/18/18 Unknown % Saturation 8 % (20-50) L 07/18/18 Unknown Transferrin 140 mg/dL (180-329) L 07/18/18 Unknown Total Bilirubin 0.7 mg/dL (0.2-1.0) 07/17/18 17:40 AST 20 IU/L (10-42) 07/17/18 17:40 ALT 13 IU/L (10-60) 07/17/18 17:40 Alkaline Phosphatase 76 IU/L (42-121) 07/17/18 17:40 Total Protein 6.7 g/dL (6.7-8.2) 07/17/18 17:40 Albumin 2.9 g/dL (3.2-5.5) L 07/17/18 17:40 Globulin 3.8 g/dL (2.1-4.2) 07/17/18 17:40 Albumin/Globulin Ratio 0.8 (1.0-2.2) L 07/17/18 17:40 Lipase 33 U/L (22-51) 07/17/18 17:40
[2018-07-19] MEDS ORDERED: POTASSIUM CHLORIDE 20 MEQ TABLET PO SCH (10:37)
[2018-07-19] MEDS: FERROUS GLUCONATE 324 MG TABLET PO SCH (12:06)
--- NOTE | 2018-07-19 16:59 | CONSULTATION NOTE ---
Palliative Care Follow Up - Referral Referring Provider: Dr. Milo Britt Time of Visit: [id number] Referral setting: Hospitalized patient Referral Reason: Pulmonary Fibrosis/Goals of [place] - Information Sources Records reviewed: RN notes reviewed, Previous records reviewed History/Review of Systems obtained from: Patient Exam limitations: No limitations - History of Present Illness Update Brief HPI Update: See HPI from 07/18 Palliative Care. Patient has continued to improved though very slowly, still is very weak, awaiting Physical Therapy. Patients goals remain to be independent as possible, is very breathless still with any activity, did shower today and was fairly exhausting. Patient continues with mild respiratory distress with conversation, and cough resolving. Patient feels oxygen is helpful, is hoping he will be discharged on this. He would like a portable carrier. Counseling provided regarding education of concentrator and home oxygen as well as Medicare guidelines. Patient most likely will be discharged in the next day or 2, is hoping to be able to transition to [place]. Does understand this may take a week or 2 as they transition his furniture, and obtain a hospital bed. Palliative care meeting with patient today to follow-up on LUCILLE ST form, and goals of care. Social History - Living Situation Living arrangement: At home Living Situation: Alone Support System: Patient has many friends from his mu-ism community, his D POA is the trim master operator Hernandez Lynn. He has been for 6 years, his did at home with hospice support. He does not have any other extended family, does perceive in his transition to [place] he will be able to receive increased support and transition to hospice at end of life. He has some close friends, who his father had there recently. They found this a positive experience, and finds this reassuring. He does have the information, as his friend Hernandez had taken a tour yesterday, he is looking at the leg outs and thinking about whether he wants 1 or 2 bedrooms.His understanding they do have openings at this point in time. Medications/Allergies - Medications Active Medication List: Active Medications Acetaminophen (Tylenol) 650 mg PO Q4HR PRN PRN Reason: Pain 1 to 4 Albuterol () 2.5 mg INH Q4HR PRN PRN Reason: Wheezing Last Admin: 07/19/18 07:30 Dose: 2.5 mg Amlodipine Besylate (Norvasc) 2.5 mg PO BID [facility] Last Admin: 07/19/18 08:44 Dose: 2.5 mg Budesonide (Pulmicort) 0.5 mg INH RTBID [facility] Last Admin: 07/19/18 07:30 Dose: 0.5 mg Docusate Sodium (Colace 250mg Capsule) 250 - 500 mg PO DAILY [facility] Last Admin: 07/19/18 08:44 Dose: 250 mg Ferrous Gluconate (Fergon) 324 mg PO DAILYWM [facility] Last Admin: 07/19/18 12:06 Dose: 324 mg Formoterol Fumarate (Perforomist) 20 mcg INH RTBID [facility] Last Admin: 07/19/18 07:30 Dose: 20 mcg Ceftriaxone Sodium 2 gm/ (Sodium Chloride) 100 mls @ 200 mls/hr IV DAILY [facility] Last Infusion: 07/19/18 10:20 Dose: Infused Azithromycin 500 mg/ Sodium (Chloride) 250 mls @ 250 mls/hr IV DAILY@1000 [facility] Last Infusion: 07/19/18 10:46 Dose: Infused Ibuprofen (Motrin) 400 mg PO Q6HR PRN PRN Reason: PAIN Last Admin: 07/19/18 00:15 Dose: 400 mg Midodrine () 10 mg PO TID PRN PRN Reason: SBP<100 Montelukast Sodium (Singulair) 10 mg PO QPM [facility] Last Admin: 07/18/18 20:30 Dose: 10 mg Ondansetron HCl (Zofran Inj) 4 mg IVP Q6HR PRN PRN Reason: Nausea / Vomiting Ondansetron HCl (Zofran Odt) 4 mg TL Q6HR PRN PRN Reason: Nausea / Vomiting Oxycodone HCl (Roxicodone) 5 mg PO Q4HR PRN PRN Reason: Pain 5 to 7 Polyethylene Glycol (Miralax) 17 gm PO DAILY [facility] Last Admin: 07/19/18 08:42 Dose: 17 gm Prednisone (Deltasone) 60 mg PO DAILYWM [facility] Last Admin: 07/19/18 08:44 Dose: 60 mg Saccharomyces Boulardii (Florastor) 250 mg PO BIDWM [facility] Last Admin: 07/19/18 16:37 Dose: 250 mg Senna (Senokot) 8.6 - 17.2 mg PO DAILY [facility] Last Admin: 07/19/18 08:54 Dose: 8.6 mg Sodium Chloride (Normal Saline Flush 0.9%) 10 ml IVP PRN PRN PRN Reason: NEEDED PER PROVIDER ORDERS Last Admin: 07/18/18 08:55 Dose: 10 ml Sodium Chloride (Normal Saline Flush 0.9%) 10 ml IVP 0100,0900,1700 SHANELL Last Admin: 07/19/18 16:37 Dose: 10 ml amLODIPine [Norvasc] 2.5 mg PO BID 09/02/15 - Allergies Allergies/Adverse Reactions: Allergies Allergy/AdvReac Type Severity Reaction Status Date / Time morphine Allergy Emesis Verified 07/17/18 17:22 Review of Systems - Constitutional Constitutional: reports: Fatigue. denies: Fever, Chills - Ears, Nose & Throat Ears, Nose & Throat: reports: Hearing loss, Hearing aids, Dry mouth - Cardiovascular Cardiovascular: reports: Exertional dyspnea, Decr. exercise tolerance, Orthopnea - Respiratory Respiratory: reports: Cough, Sputum production (clear), Orthopnea, SOB at rest (improved from yesterday), SOB with exertion - Gastrointestinal Gastrointestinal: reports: Early satiety. denies: Nausea, Reflux/heartburn - Genitourinary Genitourinary: reports: Frequency - Musculoskeletal Musculoskeletal: reports: Muscle weakness - Integumentary Integumentary: reports: Dryness - Neurological Neurological: reports: General weakness - Psychiatric Psychiatric: denies: Depression, Anxiety - Hematologic/Lymphatic Hematologic/Lymphatic: reports: Recurrent infections (pneumonia) - All Other Systems All Other Systems: reports: Reviewed and negative Physical Exam - Vital Signs Vital Signs: Vital Signs x48h Temp Pulse Pulse Pulse Pulse Resp BP 07/19/18 16:00 36.2 C L 74 18 128/62 07/19/18 12:52 36.4 C L 69 16 140/53 H 07/19/18 09:37 72 78 67 BP BP BP Pulse Ox 07/19/18 16:00 97 07/19/18 12:52 99 07/19/18 09:37 142/57 H 133/55 H 142/53 H - Physical Exam General Appearance: positive: No acute distress, Alert Eyes Bilateral: positive: Normal inspection ENT: positive: No signs of dehydration Neck: positive: No JVD, Trachea midline Cardiovascular: positive: Regular rate & rhythm Respiratory: positive: Diminished throughout, Rales (moist and rough gradiant breath sounds in RLL today). negative: Wheezes Abdomen: positive: Soft Skin: positive: Pallor, Dryness Extremities: positive: No pedal edema Neurologic/Psychiatric: positive: Oriented x3, Mood/affect nml, Weakness Palliative Care - POLST Patient has POLST: Yes POLST Status: DNR, Selective Treatment (completed at visit; AB okay; no medical nutrition) Pain: No pain Tiredness/Fatigue: Severe (7-10) Drowsiness/Sedation: Mild (1-3) Nausea: None Depression: None Anxiety: None Dyspnea: Severe (7-10) Anorexia: Mild (1-3) Sleep: Variable sleep pattern Performance Status: Patient anxious about returning to previous level of function, though he was only able to ambulate 15-20 feet in his home, he was able to dress and toilet independently. He is asking for physical therapy here in the hospital, as well as transitioning home and into the assisted living facility. His goal is to be as independent as possible. In discussion with take first available home health agency as given the urgency of the situation. I would put his PPS currently at about 40% - Palliative Care Discussion: Patient does currently understand the seriousness of his illness, he does expect to continue to decline. His perception is he does probably have more like months to years, though he does acknowledge his rapid decline over the last several weeks. He has had experiences with hospice, does not feel this is quite where he is at right now. We did discuss his larger goals, which include focusing on quality of life, at this point in time he would treat reversible conditions including coming back to the hospital but with those benefits and bu rdens in light of his other goal which is to be independent as long as possible. He does so end of life on a comfortable respectful and would like to have hospice as that was a positive experience. He already has a D POA assigned, will need to obtain that paperwork it is HERNANDEZ LYNN [phone]. He has both medical as well as financial. Patient asked multiple questions, as well as explored what is most meaningful and important to him at this point in time. L[address]IL[address] was completed with DNA R, selected treatment with the understanding he could transition to comfort at any point, antibiotics were acceptable at this point, and no medically assisted nutrition. He was provided for H IM, as well as extra copies for his D POA. Results - Lab Results Lab results reviewed: Yes Fish Bones: 07/19/18 05:05 07/19/18 05:05 Lab and Imaging Results: Lab Results x24hrs 07/19/18 07/19/18 Range/Units 05:05 05:05 WBC 15.3 H (4.8-10.8) x10^3/uL RBC 3.68 L (4.70-6.10) 10^6/uL Hgb 11.6 L (14.0-18.0) g/dL Hct 35.8 L (42.0-52.0) % MCV 97.4 H (80.0-94.0) fL MCH 31.7 H (27.0-31.0) pg MCHC 32.5 (32.0-36.0) g/dL RDW 13.0 (12.0-15.0) % Plt Count 358 (130-450) 10^3/uL MPV 7.6 (7.4-11.4) fL Neut # (Auto) 11.6 H (1.5-6.6) 10^3/uL Lymph # (Auto) 2.3 (1.5-3.5) 10^3/uL [place] # (Auto) 1.3 H (0.0-1.0) 10^3/uL Eos # (Auto) 0.0 (0.0-0.7) 10^3/uL Baso # (Auto) 0.0 (0.0-0.1) 10^3/uL Absolute Nucleated RBC 0.01 x10^3/uL Nucleated RBC % 0.1 /100WBC Sodium 139 (135-145) mmol/L Potassium 3.2 L (3.5-5.0) mmol/L Chloride 105 (101-111) mmol/L Carbon Dioxide 27 (21-32) mmol/L Anion Gap 7.0 (6-13) BUN 15 (6-20) mg/dL Creatinine 0.3 L (0.6-1.2) mg/dL Estimated GFR (MDRD) 285 (>89) Glucose 103 H (70-100) mg/dL Calcium 8.4 L (8.5-10.3) mg/dL Impression and Recommendations - Palliative Care Impression: Is an 83-year-old gentleman who presents acutely to [facility] with acute on chronic respiratory failure with hypoxia, right upper lobe pneumonia, functional decline, and moderate to high symptom burden which includes severe dyspnea. Patient is feeling better, plan is to transition to assisted living within the next couple weeks, patient does have good support to assist with this planning and moving. Patient does recognize seriousness of illness, would like to continue with palliative care on outpatient basis, has long-term relationship with his primary care physician, reassured would work closely with him. Recommendations/Counseling Done: 1. Idiopathic pulmonary fibrosis. Patient is of advanced age, now on his second hospitalization, has had functional decline and ongoing progressive dyspnea even when he is not acutely ill. Patient does report he has had PFTs within the last year, will try and obtain to put into prognostic mortality index. Patient does understand the seriousness of his illness, and does expect hopefully to improve, but also aware he may continued functional decline as well as progressive symptoms. Patient does perceive he is doing better with the oxygen, is hoping to be able to have oxygen at home including a carrier tank. Counseling provided regarding Medicare regulations around oxygen and oxygen use, as well as what is provided and what might be private pay. Will need evaluation by respiratory therapist for CMN. 2. Generalized weakness. Follow-up with hospitalist regarding obtaining physical therapy order, patient would like on transition home to have home health PT as well. Will provide [id number] at end of visit note. Discussed also equipment needs, including hospital bed. He is enlisting the help of his friend and support in getting one for his transition, he does feel better sitting straight up with his breathing and also to help with transfers. Patient does have poor activity tolerance, and significant dyspnea with any kind of movement at this point in time. 3. Advanced care planning. Outpatient referral has been requested from his PCP for ongoing follow-up. Counseling provided regarding LUCILLE [address] form, completed with updated goals, discussed in the continuum of care what his healthcare beliefs, health values, and wishes for end of life. Patient does value independence, is hoping to stay independent as long as possible and thus the request for ongoing support for physical therapy. Patient is looking forward to transition to [place], recognizing this is the next step to maintain as much independence as possible. [id number]. It is taxing considerable effort for the patient leave the home secondary to generalized functional decline with multiple hospitalizations, and severe dyspnea. Home physical therapy for safety evaluation, equipment needs, home exercise program, with goal to increase endurance and strength Time Spent: 45 minutes with greater than 50% of this done in counseling regarding goals of care, completing the LUCILLE [address], and anticipatory guidance.
--- NOTE | 2018-07-19 17:47 | PROVIDER PROGRESS NOTE ---
Assessment/Plan - Problem List (1) CAP (community acquired pneumonia) Assessment/Plan: Continue antibiotics for a 7-10 day course. Await sputum culture result, which had an abnormal gram stain. Will transition to po antibiotics before DCh. Sine this may be aspiration PNA, his diet was checked and adjusted and he will need to go home with these restrictions. (2) Pulmonary fibrosis Assessment/Plan: Will evaluate with exercise oximetry probably tomorrow, just before possible DCh to Assisted Living. Continue pulmonary toilet, nebs, Montelukast. Will stop the steroid, which is causing Insomnia. (3) Rib fracture Qualifiers: Encounter type: subsequent encounter Rib fracture type: single rib Fracture type: closed Laterality: right Fracture healing: with routine healing Qualified Code(s): S22.31XD - Fracture of one rib, right side, subsequent encounter for fracture with routine healing Assessment/Plan: This was found on imaging, is likely sub-acute and is likely related to his Hx of falls. Will order Incentive Spirometry, if not yet ordered, and prn pain meds planned. (4) History of falling Assessment/Plan: PT started to work with him and he requires further PT, he requests Home Health PT. Will order that. (5) Anemia Qualifiers: Anemia type: iron deficiency Assessment/Plan: Lab results have been done and show Fe defic. anemia. Started po Iron replacement yesterday. B12 and Folate levels were adequate, resulted today. (6) Post-polio syndrome Assessment/Plan: Chronic R arm weakness present. PT to start today. He requests Home Health PT, which I will order today, for DCh expected tomorrow. (7) Hypokalemia Assessment/Plan: Resolved with po replacement. - Current Meds Current Meds: Current Medications Generic Name Dose Route Start Last Admin Trade Name Freq PRN Reason Stop Dose Admin Albuterol 2.5 mg 07/17/18 19:57 07/19/18 07:30 INH 2.5 mg Q4HR PRN Administration Wheezing Amlodipine Besylate 2.5 mg 07/18/18 09:00 07/19/18 08:44 Norvasc PO 2.5 mg BID SHANELL Administration Budesonide 0.5 mg 07/18/18 19:00 07/19/18 07:30 Pulmicort INH 0.5 mg RTBID SHANELL Administration Docusate Sodium 250 - 500 mg 04/09/19 09:00 07/19/18 08:44 Colace 250mg Capsule PO 250 mg DAILY SHANELL Administration Ferrous Gluconate 324 mg 07/19/18 11:00 07/19/18 12:06 Fergon PO 324 mg DAILYWM SHANELL Administration Formoterol Fumarate 20 mcg 07/18/18 19:00 07/19/18 07:30 Perforomist INH 20 mcg RTBID SHANELL Administration Ceftriaxone Sodium 2 gm/ 100 mls @ 200 mls/hr 07/18/18 09:00 07/19/18 10:20 Sodium Chloride IV Infused DAILY SHANELL Infusion Azithromycin 500 mg/ Sodium 250 mls @ 250 mls/hr 07/18/18 10:00 07/19/18 10:46 Chloride IV Infused DAILY@1000 SHANELL Infusion Ibuprofen 400 mg 07/18/18 00:20 07/19/18 00:15 Motrin PO 400 mg Q6HR PRN Administration PAIN Montelukast Sodium 10 mg 07/18/18 21:00 07/18/18 20:30 Singulair PO 10 mg QPM SHANELL Administration Polyethylene Glycol 17 gm 07/18/18 09:00 07/19/18 08:42 Miralax PO 17 gm DAILY SHANELL Administration Prednisone 60 mg 07/18/18 08:00 07/19/18 08:44 Deltasone PO 60 mg DAILYWM SHANELL Administration Saccharomyces Boulardii 250 mg 07/18/18 08:00 07/19/18 16:37 Florastor PO 250 mg BIDWM SHANELL Administration Senna 8.6 - 17.2 mg 07/19/18 09:00 07/19/18 08:54 Senokot PO 8.6 mg DAILY SHANELL Administration Sodium Chloride 10 ml 07/17/18 19:53 07/18/18 08:55 Normal Saline Flush 0.9% IVP 10 ml PRN PRN Administration NEEDED PER PROVIDER ORDERS Sodium Chloride 10 ml 07/18/18 01:00 07/19/18 16:37 Normal Saline Flush 0.9% IVP 10 ml 0100,0900,1700 SHANELL Administration - Lab Result Fish Bone Diagrams: 07/20/18 05:25 07/20/18 05:25 - Additional Planning My Orders: My Active Orders 07/19/18 Evaluate and Treat PT [PT] Routine 07/19/18 11:00 Ferrous Gluconate [Fergon] 324 mg PO DAILYWM 07/20/18 05:00 FOLATE [IAI] Routine VITAMIN B12 [IAI] Routine Subjective - Subjective Patient Reports: Feeling Better, Resting Comfortably, Constipation, Other (Insomnia, since on steroids and antibiotics.) Objective Vital Signs: Vital Signs - 24 hr 07/18/18 07/18/18 07/18/18 18:00 20:05 23:35 Temperature 36.4 C L Heart Rate 69 Heart Rate [ 65 Brachial] Heart Rate [ 72 75 Sitting (After 1 Minute)] Heart Rate [ 84 80 Standing (After 1 Minute)] Heart Rate [ 71 65 Supine] Respiratory 18 18 Rate Blood Pressure 149/60 H [Left Brachial artery] Blood Pressure 149/57 H 143/67 H [Sitting (After 1 Minute)] Blood Pressure 136/57 H 156/58 H [Standing ( After 1 Minute) ] Blood Pressure 140/56 H 149/60 H [Supine] O2 Saturation 94 07/19/18 07/19/18 07/19/18 07:30 08:20 09:37 Temperature 36.5 C Heart Rate 62 Heart Rate [ 73 Brachial] Heart Rate [ 72 Sitting (After 1 Minute)] Heart Rate [ 78 Standing (After 1 Minute)] Heart Rate [ 67 Supine] Respiratory 16 16 Rate Blood Pressure 126/59 L [Left Brachial artery] Blood Pressure 142/57 H [Sitting (After 1 Minute)] Blood Pressure 133/55 H [Standing ( After 1 Minute) ] Blood Pressure 142/53 H [Supine] O2 Saturation 98 07/19/18 07/19/18 12:52 16:00 Temperature 36.4 C L 36.2 C L Heart Rate Heart Rate [ 69 74 Brachial] Heart Rate [ Sitting (After 1 Minute)] Heart Rate [ Standing (After 1 Minute)] Heart Rate [ Supine] Respiratory 16 18 Rate Blood Pressure 140/53 H 128/62 [Left Brachial artery] Blood Pressure [Sitting (After 1 Minute)] Blood Pressure [Standing ( After 1 Minute) ] Blood Pressure [Supine] O2 Saturation 99 97 Oxygen O2 Source [With Activity] Nasal cannula O2 Source Nasal cannula Oxygen Flow Rate 2 I&O (Last 24 Hrs): Intake and Output Totals x24h 07/17/18 07/18/18 07/19/18 23:59 23:59 23:59 Intake Total 3257 9251 1850 Output Total 550 825 200 Balance 1395 1462 1650 General: Alert, Oriented x3 HEENT: Mucous membr. moist/pink, Other (Wearing O2 per nasal cannula) Neck: Supple, No JVD Neuro: Non Focal Cardiovascular: Regular rate, No murmurs Respiratory: No respiratory distress, Other (Velcro rales are less prominent.) Abdomen: Soft - Results Results: Laboratory Results WBC 15.3 x10^3/uL (4.8-10.8) H 07/19/18 05:05 RBC 3.68 10^6/uL (4.70-6.10) L 07/19/18 05:05 Hgb 11.6 g/dL (14.0-18.0) L 07/19/18 05:05 Hct 35.8 % (42.0-52.0) L 07/19/18 05:05 MCV 97.4 fL (80.0-94.0) H 07/19/18 05:05 MCH 31.7 pg (27.0-31.0) H 07/19/18 05:05 MCHC 32.5 g/dL (32.0-36.0) 07/19/18 05:05 RDW 13.0 % (12.0-15.0) 07/19/18 05:05 Plt Count 358 10^3/uL (130-450) 07/19/18 05:05 MPV 7.6 fL (7.4-11.4) 07/19/18 05:05 Neut # (Auto) 11.6 10^3/uL (1.5-6.6) H 07/19/18 05:05 Lymph # (Auto) 2.3 10^3/uL (1.5-3.5) 07/19/18 05:05 [place] # (Auto) 1.3 10^3/uL (0.0-1.0) H 07/19/18 05:05 Eos # (Auto) 0.0 10^3/uL (0.0-0.7) 07/19/18 05:05 Baso # (Auto) 0.0 10^3/uL (0.0-0.1) 07/19/18 05:05 Absolute Nucleated RBC 0.01 x10^3/uL 07/19/18 05:05 Nucleated RBC % 0.1 /100WBC 07/19/18 05:05 Sodium 139 mmol/L (135-145) 07/19/18 05:05 Potassium 3.2 mmol/L (3.5-5.0) L 07/19/18 05:05 Chloride 105 mmol/L (101-111) 07/19/18 05:05 Carbon Dioxide 27 mmol/L (21-32) 07/19/18 05:05 Anion Gap 7.0 (6-13) 07/19/18 05:05 BUN 15 mg/dL (6-20) 07/19/18 05:05 Creatinine 0.3 mg/dL (0.6-1.2) L 07/19/18 05:05 Estimated GFR (MDRD) 285 (>89) 07/19/18 05:05 Glucose 103 mg/dL (70-100) H 07/19/18 05:05 Calcium 8.4 mg/dL (8.5-10.3) L 07/19/18 05:05 Iron 16 ug/dL (45-182) L 07/18/18 Unknown TIBC 196 ug/dL (250-450) L 07/18/18 Unknown % Saturation 8 % (20-50) L 07/18/18 Unknown Transferrin 140 mg/dL (180-329) L 07/18/18 Unknown Total Bilirubin 0.7 mg/dL (0.2-1.0) 07/17/18 17:40 AST 20 IU/L (10-42) 07/17/18 17:40 ALT 13 IU/L (10-60) 07/17/18 17:40 Alkaline Phosphatase 76 IU/L (42-121) 07/17/18 17:40 Total Protein 6.7 g/dL (6.7-8.2) 07/17/18 17:40 Albumin 2.9 g/dL (3.2-5.5) L 07/17/18 17:40 Globulin 3.8 g/dL (2.1-4.2) 07/17/18 17:40 Albumin/Globulin Ratio 0.8 (1.0-2.2) L 07/17/18 17:40 Lipase 33 U/L (22-51) 07/17/18 17:40
[2018-07-19] MEDS ORDERED: rOPINIRole 0.25 MG TABLET PO PRN (21:00)
[2018-07-19] MEDS: MONTELUKAST 10 MG TABLET PO SCH (21:31)
[2018-07-20 05:52] LABS: CALCIUM 8.5 mg/dL (8.5-10.3); CREATININE 0.4 mg/dL (0.6-1.2)
[2018-07-20 05:59] LABS: BASOPHILS # (AUTO) 0.1 10^3/uL (0.0-0.1); BASOPHILS % (AUTO) 0.4 %; EOSINOPHILS % (AUTO) 0.2 %; HGB - HEMOGLOBIN 12.9 g/dL (14.0-18.0); LYMPHOCYTES # (AUTO) 2.1 10^3/uL (1.5-3.5); LYMPHOCYTES % (AUTO) 16.5 %; MEAN CORPUSCULAR HEMOGLOBIN 31.2 pg (27.0-31.0); MEAN CORPUSCULAR HGB CONC 32.5 g/dL (32.0-36.0); MEAN PLATELET VOLUME 7.6 fL (7.4-11.4); MONOCYTES # (AUTO) 1.1 10^3/uL (0.0-1.0); MONOCYTES % (AUTO) 8.3 %; NEUTROPHILS # (AUTO) 9.5 10^3/uL (1.5-6.6); NEUTROPHILS % (AUTO) 74.6 %; PLT - PLATELET COUNT 390 10^3/uL (130-450); RED BLOOD COUNT 4.12 10^6/uL (4.70-6.10); RED CELL DISTRIBUTION WIDTH 12.7 % (12.0-15.0); WHITE BLOOD COUNT 12.8 x10^3/uL (4.8-10.8)
[2018-07-20 06:21] LABS: FOLATE 12.79 ng/mL (5.90 - >24.8)
[2018-07-20] MEDS: BUDESONIDE 0.5 MG/2 ML NEB INH SCH ×2 (07:45→20:54)
[2018-07-20] MEDS: FORMOTEROL FUMARATE NEB 20 MCG/2 ML INH SCH ×2 (07:45→20:53)
[2018-07-20] MEDS: ALBUTEROL NEB 2.5 MG/3 ML INH PRN ×3 (07:45→20:54)
[2018-07-20] MEDS: DOCUSATE SODIUM 250 MG CAPSULE PO SCH (08:53)
[2018-07-20] MEDS: SENNA 8.6 MG TABLET PO SCH (08:53)
[2018-07-20] MEDS: amLODIPine 5 MG TABLET PO SCH ×2 (08:53→21:43)
[2018-07-20] MEDS: SACCHAROMYCES BOULARDII 250 MG CAPSULE PO SCH ×2 (08:53→17:22)
[2018-07-20] MEDS: FERROUS GLUCONATE 324 MG TABLET PO SCH (08:54)
[2018-07-20] MEDS: predniSONE 20 MG TABLET PO SCH (08:56)
[2018-07-20] MEDS: POLYETHYLENE GLYCOL 3350 17 GM PACKET PO SCH (08:57)
[2018-07-20] MEDS: SODIUM CHLORIDE FLUSH 0.9% 10 ML SYRINGE IVP SCH ×2 (09:19→15:56)
[2018-07-20] MEDS: AZITHROMYCIN INJ 500 MG in SODIUM CHLORIDE 0.9% 250 ML IV SCH (09:19)
[2018-07-20] MEDS ORDERED: MAGNESIUM HYDROXIDE 2,400 MG/30 ML UDC PO ONE (14:39)
[2018-07-20] MEDS ORDERED: BISACODYL 10 MG SUPP PR ONE (14:39)
[2018-07-20] MEDS: AMOX/CLAV 875 MG/125 MG TABLET PO SCH (21:44)
[2018-07-20] MEDS: MONTELUKAST 10 MG TABLET PO SCH (21:44)
[2018-07-21] MEDS: SODIUM CHLORIDE FLUSH 0.9% 10 ML SYRINGE IVP SCH ×2 (00:24→08:48)
[2018-07-21] MEDS: IBUPROFEN 400 MG TABLET PO PRN (00:24)
[2018-07-21 05:47] LABS: BASOPHILS % (AUTO) 0.3 %; EOSINOPHILS # (AUTO) 0.1 10^3/uL (0.0-0.7); EOSINOPHILS % (AUTO) 0.5 %; HGB - HEMOGLOBIN 12.9 g/dL (14.0-18.0); LYMPHOCYTES # (AUTO) 2.4 10^3/uL (1.5-3.5); LYMPHOCYTES % (AUTO) 20.6 %; MEAN CORPUSCULAR HEMOGLOBIN 31.7 pg (27.0-31.0); MEAN PLATELET VOLUME 7.5 fL (7.4-11.4); MONOCYTES # (AUTO) 1.2 10^3/uL (0.0-1.0); MONOCYTES % (AUTO) 9.8 %; NEUTROPHILS # (AUTO) 8.1 10^3/uL (1.5-6.6); NEUTROPHILS % (AUTO) 68.8 %; PLT - PLATELET COUNT 369 10^3/uL (130-450); RED BLOOD COUNT 4.08 10^6/uL (4.70-6.10); RED CELL DISTRIBUTION WIDTH 12.9 % (12.0-15.0); WHITE BLOOD COUNT 11.8 x10^3/uL (4.8-10.8)
[2018-07-21 05:56] LABS: CALCIUM 8.7 mg/dL (8.5-10.3); CREATININE 0.4 mg/dL (0.6-1.2)
[2018-07-21] MEDS: BUDESONIDE 0.5 MG/2 ML NEB INH SCH (07:57)
[2018-07-21] MEDS: FORMOTEROL FUMARATE NEB 20 MCG/2 ML INH SCH (07:58)
[2018-07-21 08:45] VITALS: BP 135/58
[2018-07-21] MEDS: DOCUSATE SODIUM 250 MG CAPSULE PO SCH (08:48)
[2018-07-21] MEDS: SACCHAROMYCES BOULARDII 250 MG CAPSULE PO SCH (08:48)
[2018-07-21] MEDS: AMOX/CLAV 875 MG/125 MG TABLET PO SCH (08:48)
[2018-07-21] MEDS: FERROUS GLUCONATE 324 MG TABLET PO SCH (08:48)
[2018-07-21] MEDS: POLYETHYLENE GLYCOL 3350 17 GM PACKET PO SCH (08:48)
[2018-07-21] MEDS: amLODIPine 5 MG TABLET PO SCH (08:48)
[2018-07-21] MEDS: SENNA 8.6 MG TABLET PO SCH (08:55)
[2018-07-21] MEDS ORDERED: AZITHROMYCIN 250 MG TABLET PO SCH (09:00)
--- NOTE | 2018-07-21 11:02 | Discharge Plan ---
"Discharge Plan for SNF / [facility] - Discharge Plan And Transition Orders Disposition: 03 SNF DC/Xfer Condition: Stable Allergies and Adverse Reactions: Allergies Allergy/AdvReac Type Severity Reaction Status Date / Time morphine Allergy Emesis Verified 07/17/18 17:22 - SNF / [facility] Transition Orders Admit to (Facility): [facility] Discharge Diagnosis: 1) Community acquired pneumonia, finishing treatment 2) Pulmonary Fibrosis 3) Post-polio syndrome 4) Hx of falls at home 5) Subacute rib fracture after a fall 6) Iron deficiency anemia 7) Restless leg syndrome 8) Constipation 9) Code Status: DNR Medicare Certification Statement: I certify that [facility] care is medically necessary on a continuing basis for any of the conditions for which she/he is receiving care during hospitalization. Notify PCP of admission and forward orders to primary provider for signature. Weight on admission and: Weekly Call PCP immediately if weight increases by: 5 kg Other Notification Orders: Call PCP immediately if patient develops dyspnea, chest pain/tightness or edema. House Bowel Program: Yes Additional Bowel Program Orders: If no BM after 2 days, nurse may give M.O.M. 30ml PO PRN and/or ducolax Supp 1 SC and/or MERARY 250mg P.O., and/or senna 1-2 tabs PO. On day 3 nurse may give repeat above order until residents constipation is resolved. Annual Influenza Vaccine (between Dec 11 and July 10): Yes Two-step PPD per [facility] [id number] or approved exception documents: Yes Treatments & Other Orders: PT and OT with Home Health, and Speech Therapy to co nfirm swallowing and altered diet need Oxygen Orders: O2 3L per nasal cannula with exertion Orthopedic Orders: None Medication Orders: PLEASE REFER TO THE DISCHARGE MEDICATION LIST. Insulin Orders?: No - Medications New Prescriptions: Albuterol Sulfate [Albuterol Sulfate Hfa] 8.5 gm IH QID PRN #1 hfa.aer.ad PRN Reason: Wheezing Amox/Clav 875/125 [Augmentin 875/125] 1 tab PO BID #6 tablet Docusate Sodium 250Mg Capsule [Colace 250Mg Capsule] 250 mg PO DAILY #30 capsule Ferrous Gluconate [Iron] 240 mg PO DAILY #30 tablet Fluconazole [Diflucan] 150 mg PO BID #6 tablet Fluticasone/Salmeterol [Advair 250-50 Diskus] 1 each IH BID #1 blst.w.dev Montelukast [Singulair] 10 mg PO QPM #30 tablet Polyethylene Glycol 3350 [Miralax] 17 gm PO DAILY #30 packet rOPINIRole [Requip] 0.25 mg PO QPM PRN #30 tablet PRN Reason: Restlessness Saccharomyces Boulardii [Florastor] 250 mg PO BID #8 capsule Senna [Senokot] 8.6 mg PO DAILY #30 tablet Tiotropium Denair [Spiriva Respimat] 4 gm IH DAILY #30 mist.inhal - Diet Type: Geriatric Texture: [facility] soft Liquids: Thin Supplements: 4 oz Ensure with meals May have monthly special meal: Yes - Therapies | Activity Therapy: Evaluation | Treat if indicated: PT, OT, Swallowing / ST Rehabilitation Potential: Maximize functional status Activity: Activity as Tolerated Assistance Devices: Walker Additional Instructions: You were admitted to teat pneumonia and low oxygenation due to pulmonary fibrosis. Please finish the antibiotics, prescribed for several more days, and your sputum grew yeast, so 3 days of yeast medication for that. You are being discharged with new inhalers, oxygen to use during any activity, but it is optional at rest. Follow the new list of medications, since many have been adjusted. Home Health Physical Therapy and Occupational Therapy was ordered for you. See your PCP in follow-up in about a week. If you have new or worsening symptoms, call your PCP or come to the ER."
--- NOTE | 2018-07-21 16:04 | DISCHARGE SUMMARY ---
Physician: Michelle Delgado MD DATE OF ADMISSION: 07/17/2018 DATE OF DISCHARGE: 07/21/2018 HISTORY OF PRESENT ILLNESS: This is an 83-year-old white male with a history of pulmonary fibrosis, recurrent falls, recent rib fracture, recent admission at another hospital for a pneumothorax, and then subsequent detention facility rehabilitation. Patient lives at home alone and is considering getting help by moving to assisted living. He presented at this admission with shortness of breath, documented desaturations, a nonproductive cough, and being too weak to do his ADLs in his home. He called an ambulance because of these problems and in the emergency room was noted to have a pulmonary infiltrate, desaturating to 86% on room air, was tachypneic, and was admitted for management of his community-acquired pneumonia. 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 HOSPITAL COURSE AND DISCHARGE DIAGNOSES 1. Community-acquired pneumonia. Patient was placed on empiric iv antibiotics, blood and sputum cultures were obtained. The blood culture had no growth, and the respiratory culture grew no bacteria, but near the final days of his stay, was positive for yeast. At discharge, he was transitioned to oral antibiotics for several more days and also given a 3-day course of Diflucan. He was on Florastor during antibiotic use. He hasd a swallowing evaluation, due to concern for aspiration pneumonia and indeed his diet order was altered to soft with thin liquids. 2. Pulmonary fibrosis. Patient had not required supplemental oxygen until this admission. On the day of discharge, he was evaluated for needing home oxygen. He was not hypoxic at rest with a room air O2 saturation of 92%. With ambulation, on room air, he was hypoxic with O2 saturation of 85%. With exertion, on 2 liters nasal cannula oxygen, he had saturations of 88%, and finally, on 3 liters by nasal cannula oxygen supplemental, his O2 saturations were 92%. I am ordering home O2: room air at rest, 3 liters per nasal cannula with exertion, to help treat his pulmonary fibrosis and hypoxia with exertion. He also was discharged on new Spiriva, oral Singulair at night, Advair Diskus, and Albuterol rescue inhaler. Patient had been on steroids while here, they did not help and he felt tremulous and had insomnia, and therefore, these were discontinued during this hospitalization, and he was not discharged with any steroids to taper. 3. Post-polio syndrome. Patient has chronic right arm weakness and deformity. Physical Therapy began working with patient while here and he qualified for home health PT, OT, and Speech Therapy (for swallowing re-evaluation) at his new assisted living facility, [facility], to where he was discharged. 4. History of falls at home. Patient has known gait dysfunction, and with his post-polio syndrome, may be predisposed to falls. He was evaluated for orthostasis but did not require medications changed for that. 5. Subacute rib fracture after a fall. His chest x-ray showed a healing right- sided rib fracture, and he did remember having a fall on that side in the past. Incentive spirometry was ordered while he was here. 6. Iron-deficiency anemia. Patient's hemoglobin was 13.4 on admission, which dropped to 11.6, and he underwent blood levels for B12 and folate, which were adequate, but had low iron stores. He was started on oral iron supplements daily and discharged with this. 7. Restless legs syndrome. Patient reported using an [id number] compound for restless legs. Our pharmacist reviewed the contents of this, which were not felt to be safe (containing several toxic ingredients such as poison sandra). He was started on Requip at bedtime and discharged with this new prescription. 8. Constipation. Patient required a bowel program here including 3 or 4 different medications, and he was discharged with these new prescriptions. ALLERGIES: MORPHINE. DISCHARGE MEDICATIONS 1. Amlodipine 2.5 mg b.i.d. 2. Albuterol sulfate q.i.d. p.r.n. wheezing. 3. Augmentin 875/125 mg p.o. b.i.d. for an additional 3 days. 4. Diflucan 150 mg p.o. b.i.d. for a 3-day course. 5. Florastor 250 mg b.i.d. for an additional 4 days. 6. Colace 250 mg daily. 7. MiraLax 1 packet daily. 8. Senokot 8.6 mg daily. 9. Ferrous gluconate 240 mg daily. 10. Advair inhaler b.i.d. 11. Singulair 10 mg every night. 12. Requip 0.25 mg p.o. every evening p.r.n. restless legs. 13. Spiriva Respimat 1 inhalation daily. LABORATORY AND IMAGING: Reviewed and summarized above. CONDITION AT DISCHARGE: Stable. PHYSICAL EXAMINATION VITAL SIGNS: Blood pressure 135/60, heart rate 74, in sinus rhythm, afebrile. Saturations of oxygen are described above. HEENT: Unremarkable. NECK: Without JVD or carotid bruits. CHEST: Fine Velcro-like rales at both bases, clear lung ramos at the apices. HEART: Sounds normal. No murmur. ABDOMEN: Soft. No tenderness. No organomegaly. EXTREMITIES: No clubbing, cyanosis, or edema. NEUROLOGIC: The right arm is shortened and weak, neurologic exam otherwise is nonfocal. FOLLOWUP: He is advised to see his PCP in 5-10 days for hospital followup. CODE STATUS: DNR. Time required to complete this entire discharge, chart review, prescription orders, assisted living facility orders, dictation: 60 minutes. TD: 07/21/2018 15:38 SAUL
== END 2018-07-21 12:50 | DRG 177 ==
LOC: EDUNIT# → ED 17:13 → MS2 19:53
PROVIDERS: ADMIT Specialist; ATTEND Internal Medicine
DX: J18.1 Lobar pneumonia, unspecified organism (principal); R09.02 Hypoxemia; B37.1 Pulmonary candidiasis; J69.0 Pneumonitis due to inhalation of food and vomit; J84.112 Idiopathic pulmonary fibrosis; I10 Essential (primary) hypertension; D50.9 Iron deficiency anemia, unspecified; E87.6 Hypokalemia; G14 Postpolio syndrome; M21.921 Unspecified acquired deformity of right upper arm; R26.9 Unspecified abnormalities of gait and mobility; R53.1 Weakness; K59.00 Constipation, unspecified; G47.00 Insomnia, unspecified; G25.1 Drug-induced tremor; T38.0X5A Adverse effect of glucocorticoids and synthetic analogues, initial encounter; Y92.230 Patient room in hospital as the place of occurrence of the external cause; H91.90 Unspecified hearing loss, unspecified ear; N40.1 Benign prostatic hyperplasia with lower urinary tract symptoms; R35.1 Nocturia; G25.81 Restless legs syndrome; S22.31XD Fracture of one rib, right side, subsequent encounter for fracture with routine healing; W19.XXXD Unspecified fall, subsequent encounter; Z66 Do not resuscitate; Z51.5 Encounter for palliative care; Z99.81 Dependence on supplemental oxygen; Z91.81 History of falling; Z85.828 Personal history of other malignant neoplasm of skin
CPT/HCPCS: 36415; 71045; 80048; 80053; 82607; 82746; 83540; 83690; 84466; 85025; 87040; 87070; 87205; 94640; 94664; 94761; 96361; 96374; 96375; 97161; 99223; 99284; A9270; J7512; J7626

== ENCOUNTER 2018-07-24 17:31 | Outpatient (CLI) | payer MEDICARE, BC | END 2018-07-24 17:32 | disposition critical access hospital (66) | LOC: EMS 17:31 | PROVIDERS: ATTEND Surgery | DX: R55 Syncope and collapse (principal); R53.1 Weakness; M25.531 Pain in right wrist | CPT/HCPCS: A0425; A0429 ==

== ENCOUNTER 2018-07-24 17:50 | Inpatient (IN) | payer MEDICARE, BC ==
--- NOTE | 2018-07-24 18:13 | ED Physician Documentation ---
History of Present Illness - Stated complaint Stated Complaint: SYNCOPE/WEAK - Chief complaint Chief Complaint: Trauma Ext - History obtained from History obtained from: Patient, Friend - History of Present Illness Timing: Other (This is an 83-year-old gentleman with pulmonary fibrosis and history of pneumothorax who had pneumonia a week ago. He was in his house before that but now it is is is is an assisted living ever since the pneumonia he is been very weak and had a syncopal episode with walking today. There was no injury.) Review of Systems Ten Systems: 10 systems reviewed and negative Constitutional: denies: Fever, Chills Cardiac: denies: Chest pain / pressure, Palpitations Respiratory: reports: Dyspnea. denies: Cough GI: denies: Abdominal Pain PD PAST MEDICAL HISTORY - Past Medical History Past Medical History: Yes Cardiovascular: Hypertension, Other Respiratory: Shortness of breath, Other Neuro: None Endocrine/Autoimmune: None GI: None : Benign prostate hypertrophy HEENT: Chronic hearing loss Psych: None Musculoskeletal: None, Other Derm: None Other Past Medical History: PULMONARY FIBROSIS - Past Surgical History Past Surgical History: Yes General: Appendectomy - Present Medications Home Medications: Ambulatory Orders Medication Instructions Recorded Confirmed amLODIPine [Norvasc] 2.5 mg PO BID 09/02/15 07/17/18 Albuterol Sulfate [Albuterol 8.5 gm IH QID PRN #1 hfa.aer.ad 07/21/18 Sulfate Hfa] Amox/Clav 875/125 [Augmentin 1 tab PO BID #6 tablet 07/21/18 875/125] Docusate Sodium 250Mg Capsule 250 mg PO DAILY #30 capsule 07/21/18 [Colace 250Mg Capsule] Ferrous Gluconate [Iron] 240 mg PO DAILY #30 tablet 07/21/18 Fluconazole [Diflucan] 150 mg PO BID #6 tablet 07/21/18 Fluticasone/Salmeterol [Advair 1 each IH BID #1 blst.w.dev 07/21/18 250-50 Diskus] Montelukast [Singulair] 10 mg PO QPM #30 tablet 07/21/18 Polyethylene Glycol 3350 [Miralax] 17 gm PO DAILY #30 packet 07/21/18 Saccharomyces Boulardii [Florastor] 250 mg PO BID #8 capsule 07/21/18 Senna [Senokot] 8.6 mg PO DAILY #30 tablet 07/21/18 Tiotropium Maurepas [Spiriva 4 gm IH DAILY #30 mist.inhal 07/21/18 Respimat] rOPINIRole [Requip] 0.25 mg PO QPM PRN #30 tablet 07/21/18 - Allergies Allergies/Adverse Reactions: Allergies Allergy/AdvReac Type Severity Reaction Status Date / Time morphine Allergy Emesis Verified 07/24/18 17:59 - Social History Does the pt smoke?: No Smoking Status: Never smoker Does the pt drink ETOH?: No Does the pt have substance abuse?: No - Family History Family history: reports: Non contributory - Immunizations Immunizations are current?: Yes - POLST Patient has POLST: Yes PD ED PE NORMAL - Vitals Vital signs reviewed: Yes - General General: Alert and oriented X 3, No acute distress - HEENT HEENT: PERRL, EOMI - Neck Neck: Supple, no meningeal sign, No bony TTP - Cardiac Cardiac: RRR, No murmur - Respiratory Respiratory: Other (Bibasilar crackles and diminished at the left base) - Abdomen Abdomen: Non tender - Back Back: No CVA TTP, No spinal TTP - Derm Derm: Normal color, Warm and dry - Extremities Extremities: No edema, No calf tenderness / cord - Neuro Neuro: Alert and oriented X 3, Normal speech Results - Vitals Vitals: Vital Signs - 24 hr 07/24/18 07/24/18 07/24/18 17:55 18:46 19:14 Temperature 36.1 C L 36.1 C L Heart Rate 75 73 75 Heart Rate [ Sitting] Heart Rate [ Standing] Heart Rate [ Supine] Respiratory 20 14 18 Rate Blood Pressure 138/63 H 128/69 133/64 H Blood Pressure [Sitting] Blood Pressure [Standing] Blood Pressure [Supine] O2 Saturation 98 100 100 07/24/18 07/24/18 07/24/18 19:42 19:43 21:25 Temperature Heart Rate Heart Rate [ 77 81 Sitting] Heart Rate [ 77 88 Standing] Heart Rate [ 77 77 73 Supine] Respiratory Rate Blood Pressure Blood Pressure 107/64 126/69 [Sitting] Blood Pressure 105/51 L 125/63 [Standing] Blood Pressure 141/65 H 141/65 H 159/63 H [Supine] O2 Saturation Oxygen O2 Source [With Activity] Nasal cannula O2 Source Nasal cannula - EKG (time done) 1834 Rate: Rate (enter#) (73) Rhythm: NSR [place]: Normal Intervals: Prolonged ND QRS: LVH Ischemia: No: ST elevation c/w ischemia Computer interpretation: Agree with computer - Labs Labs: Laboratory Tests 07/24/18 07/24/18 07/24/18 18:40 18:40 18:40 WBC 11.6 H RBC 4.33 L Hgb 13.6 L Hct 41.2 L MCV 95.1 H MCH 31.4 H MCHC 33.0 RDW 13.0 Plt Count 371 MPV 7.2 L Neut # (Auto) 7.9 H Lymph # (Auto) 2.4 [place] # (Auto) 0.8 Eos # (Auto) 0.4 Baso # (Auto) 0.1 Absolute Nucleated RBC 0.01 Nucleated RBC % 0.1 PT 12.3 INR 1.1 Sodium 135 Potassium 3.4 L Chloride 101 Carbon Dioxide 24 Anion Gap 10.0 BUN 17 Creatinine 0.5 L Estimated GFR (MDRD) 158 Glucose 103 H Lactic Acid Calcium 8.6 Total Bilirubin 0.8 AST 16 ALT 16 Alkaline Phosphatase 77 Troponin I Total Protein 6.3 L Albumin 3.0 L Globulin 3.3 Albumin/Globulin Ratio 0.9 L Lipase 48 07/24/18 07/24/18 18:40 18:40 WBC RBC Hgb Hct MCV MCH MCHC RDW Plt Count MPV Neut # (Auto) Lymph # (Auto) [place] # (Auto) Eos # (Auto) Baso # (Auto) Absolute Nucleated RBC Nucleated RBC % PT INR Sodium Potassium Chloride Carbon Dioxide Anion Gap BUN Creatinine Estimated GFR (MDRD) Glucose Lactic Acid 0.8 Calcium Total Bilirubin AST ALT Alkaline Phosphatase Troponin I < 0.04 Total Protein Albumin Globulin Albumin/Globulin Ratio Lipase PD MEDICAL DECISION MAKING - ED course ED course: This is an 83-year-old gentleman with pulmonary fibrosis and recent admission for pneumonia who presents with a syncopal episode and generalized weakness. Seems mostly like deconditioning. His labs and x-ray were without significant findings. We did orthostatics and he had about a 30 five-point drop in his systolic from supine to standing so that suggested some level of volume depletion. Prior to the administration of IV fluids he failed a "road test." He was administered IV fluids. After the administration of IV fluids, first bag he was orthostatic but was able to ambulate just a little bit. Given advanced age and the necessity for large volume IV fluids he will be placed in the observation for further evaluation and treatment and I spoke with Dr. Ramon for this at 10 PM. Departure - Departure Disposition: ED Place in Observation Clinical Impression: Pulmonary fibrosis, Physical deconditioning, FTT (failure to thrive) in adult, Syncope Dyspnea Qualifiers: Dyspnea type: shortness of breath Qualified Code(s): R06.02 - Shortness of breath Condition: Stable
[2018-07-24 18:47] LABS: BASOPHILS # (AUTO) 0.1 10^3/uL (0.0-0.1); BASOPHILS % (AUTO) 1.1 %; EOSINOPHILS # (AUTO) 0.4 10^3/uL (0.0-0.7); EOSINOPHILS % (AUTO) 3.5 %; HGB - HEMOGLOBIN 13.6 g/dL (14.0-18.0); LYMPHOCYTES # (AUTO) 2.4 10^3/uL (1.5-3.5); LYMPHOCYTES % (AUTO) 20.3 %; MEAN CORPUSCULAR HEMOGLOBIN 31.4 pg (27.0-31.0); MEAN CORPUSCULAR VOLUME 95.1 fL (80.0-94.0); MEAN PLATELET VOLUME 7.2 fL (7.4-11.4); MONOCYTES # (AUTO) 0.8 10^3/uL (0.0-1.0); MONOCYTES % (AUTO) 7.3 %; NEUTROPHILS # (AUTO) 7.9 10^3/uL (1.5-6.6); NEUTROPHILS % (AUTO) 67.8 %; PLT - PLATELET COUNT 371 10^3/uL (130-450); RED BLOOD COUNT 4.33 10^6/uL (4.70-6.10); WHITE BLOOD COUNT 11.6 x10^3/uL (4.8-10.8)
--- NOTE | 2018-07-24 18:51 | XRAY Report ---
Reason: dyspnea weak Procedure Date: 07/24/2018 Accession Number: [id number] / [id number] Procedure: XR - Chest 2 View X-Ray CPT Code: 10783 FULL RESULT: EXAM: CHEST RADIOGRAPHY EXAM DATE: 07/24/2018 06:33 PM. CLINICAL HISTORY: Dyspnea and weakness. COMPARISON: CHEST 1 VIEW 07/17/2018 5:33 PM CHEST 2 VIEW PA/LAT 06/05/2016 9:36 AM CHEST ANGIO 03/04/2016 2:14 PM. TECHNIQUE: 2 views. FINDINGS: Lungs/Pleura: Similar appearance of distribution of left greater than right peripheral predominant reticular opacities, compatible with known interstitial fibrosis. No convincing new focal opacity. No pleural effusion or pneumothorax. Mediastinum: Heart size is normal. The aorta is mildly tortuous, as before. Other: Mid/lower thoracic spine DISH. IMPRESSION: 1. Chronic interstitial fibrosis. 2. No evident acute cardiopulmonary abnormality. RADIA
[2018-07-24 18:52] LABS: INR 1.1 (0.8-1.2); PT - PROTHROMBIN TIME 12.3 secs (9.9-12.6)
[2018-07-24 19:00] LABS: ALBUMIN/GLOBULIN RATIO 0.9 (1.0-2.2); BILIRUBIN,TOTAL 0.8 mg/dL (0.2-1.0); CALCIUM 8.6 mg/dL (8.5-10.3); CREATININE 0.5 mg/dL (0.6-1.2); TOTAL PROTEIN 6.3 g/dL (6.7-8.2)
[2018-07-24] MEDS ORDERED: LACTATED RINGERS 1,000 ML IV STA (19:42)
[2018-07-24] MEDS ORDERED: SODIUM CHLORIDE 0.9% 1,000 ML IV ONE (21:32)
[2018-07-24] MEDS ORDERED: SODIUM CHLORIDE FLUSH 0.9% 10 ML SYRINGE IVP PRN (22:48)
--- NOTE | 2018-07-24 23:47 | HISTORY & PHYSICAL EXAMINATION ---
Chief Complaint - Chief Complaint Chief Complaint: syncope History of Present Illness - Admitted From Admitted From:: [facility] ED - History Obtained From Records Reviewed: yes History obtained from: patient - History of Present Illness HPI Comment/Other: Patient seen on 07/24/18 at 20:15 pm Patient is an 83 y/o male who presented to the ED after a syncopal episode. He stood up from the chair he was sitting in to go to the bathroom and the next thing he knew, he was waking up from the floor. He temporally resides at [facility] facility in [place]. He otherwise lives alone in his house in [place]. He was recently admitted to [facility] on 07/17/18 for right lung pneumonia and discharged to [facility] on 07/21/18. It is reported that he has been weak and/or deconditioned while there. In the ED his orthostatics were positive with his SBP dropping from 145 to 105. At bedside he is AOX3 but appears tires. He denies chest pain or worsening in his chronic respiratory condition, abd pain, n/v, fever or chills. He normally walks with the assistance of a cane. He has limited use of his right hand as a result of polio at age 2. History - Past Medical History Cardiovascular: reports: Hypertension, Other Respiratory: reports: Shortness of breath, Other Neuro: reports: None Endocrine/Autoimmune: reports: None GI: reports: None : reports: Benign prostate hypertrophy HEENT: reports: Chronic hearing loss Psych: reports: None Musculoskeletal: reports: None, Other Derm: reports: None MRSA Hx?: No Other Past Medical History: PULMONARY FIBROSIS. Vasovagal syncope. Post-polio syndrome with right arm weakness. Chronic gait dysfunction - Past Surgical History General: reports: Appendectomy HEENT: reports: Cataracts - Family & Social History Family History: Mother: (62 heart failure, mother old age), Blood Disease/Disorder (throat, other brother complications of atrial fibrillation), Father: , Brother: Blood Disease/Disorder Social History Notes: Born and raised in [place]. Came to [place] when he was a young child. 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 They never had any children and she of cancer approximately 20-25 years ago. He has lived in the same home since then. Sikh is his primary social support. He rarely drinks. Has not really drunk anything at all in 25 years. He never smoked and does not have any history of recreational substance abuse. - Substance History Use: Uses substance without health or social issues: NONE - POLST Patient has POLST: Yes POLST Status: DNR Meds/Allgy - Home Medications Home Medications: Ambulatory Orders Medication Instructions Recorded Confirmed amLODIPine [Norvasc] 2.5 mg PO BID 09/02/15 07/17/18 Albuterol Sulfate [Albuterol 8.5 gm IH QID PRN #1 hfa.aer.ad 07/21/18 Sulfate Hfa] Amox/Clav 875/125 [Augmentin 1 tab PO BID #6 tablet 07/21/18 875/125] Docusate Sodium 250Mg Capsule 250 mg PO DAILY #30 capsule 07/21/18 [Colace 250Mg Capsule] Ferrous Gluconate [Iron] 240 mg PO DAILY #30 tablet 07/21/18 Fluconazole [Diflucan] 150 mg PO BID #6 tablet 07/21/18 Fluticasone/Salmeterol [Advair 1 each IH BID #1 blst.w.dev 07/21/18 250-50 Diskus] Montelukast [Singulair] 10 mg PO QPM #30 tablet 07/21/18 Polyethylene Glycol 3350 [Miralax] 17 gm PO DAILY #30 packet 07/21/18 Saccharomyces Boulardii [Florastor] 250 mg PO BID #8 capsule 07/21/18 Senna [Senokot] 8.6 mg PO DAILY #30 tablet 07/21/18 Tiotropium [place] [Spiriva 4 gm IH DAILY #30 mist.inhal 07/21/18 Respimat] rOPINIRole [Requip] 0.25 mg PO QPM PRN #30 tablet 07/21/18 - Allergies Allergies/Adverse Reactions: Allergies Allergy/AdvReac Type Severity Reaction Status Date / Time morphine Allergy Emesis Verified 07/24/18 17:59 Review of Systems - Constitutional Constitutional: reports: Weakness. denies: Fever, Chills, Diaphoresis - Eyes Eyes: denies: Blurred vision, Vision loss, Dipolpia - Ears, Nose & Throat Ears, Nose & Throat: denies: Vertigo, Nasal discharge, Hoarseness - Cardiovascular Cariovascular: reports: Syncope. denies: Irregular heart rate, Palpitations, Chest pain, Edema, Exertional dyspnea, Decr. exercise tolerance - Respiratory Respiratory: denies: Cough, Sputum production - Gastrointestinal Gastrointestinal: denies: Abdominal pain, Abdominal distention, Constipation, Nausea, Vomiting - Genitourinary Genitourinary: denies: Dysuria, Frequency, Urgency, Hematuria - Musculoskeletal Musculoskeletal: denies: Muscle pain, Muscle aches - Integumentary Integumentary: denies: Rash, Pruritis, Lesions - Neurological Neurological: reports: General weakness, Abnormal gait (chronic). denies: Focal weakness, Headache, Numbness - Psychiatric Psychiatric: denies: Depression, Anxiety - Endocrine Endocrine: denies: Polyuria, Polydypsia - Hematologic/Lymphatic Hematologic/Lymphatic: denies: Anemia, Bruising Prior Level of Functionality: Born and raised in [place]. Came to [place] when he was a young child. 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 They never had any children and she of cancer approximately 20-25 years ago. He has lived in the same home since then. Sikh is his primary social support. He rarely drinks. Has not really drunk anything at all in 25 years. He never smoked and does not have any history of recreational substance abuse. Exam - Vital Signs Vital Signs: Vital Signs x48h Temp Pulse Pulse Pulse Pulse Resp BP 07/24/18 21:25 81 88 73 07/24/18 19:43 77 77 77 07/24/18 19:42 77 07/24/18 19:14 75 18 133/64 H 07/24/18 18:46 36.1 C L 73 14 128/69 07/24/18 17:55 36.1 C L 75 20 138/63 H BP BP BP Pulse Ox 07/24/18 21:25 126/69 125/63 159/63 H 07/24/18 19:43 107/64 105/51 L 141/65 H 07/24/18 19:42 141/65 H 07/24/18 19:14 100 07/24/18 18:46 100 07/24/18 17:55 98 - Physical Exam General Appearance: positive: No acute distress, Alert Eyes Bilateral: positive: Normal inspection, PERRL, EOMI ENT: positive: ENT inspection nml, Pharynx nml Neck: positive: Nml inspection, No JVD, Trachea midline Respiratory: positive: Chest non-tender, No respiratory distress. negative: Wheezes, Rales, Rhonchi Cardiovascular: positive: Regular rate & rhythm. negative: No murmur Abdomen: positive: Non-tender, Nml bowel sounds, No distention. negative: Guarding, Rebound Back: positive: Nml inspection Skin: positive: Color nml, No rash Extremities: positive: Non-tender, No pedal edema. negative: Nml appearance (right hand atrophic and weak due to polio at age 2) Neurologic/Psychiatric: positive: Oriented x3 Conclusion/Plan - Problem List (1) Syncope Conclusion/Plan: Patient has history of vasovagal syncope Most recent echo reported an EF of 65-70% with grade I diastolic dysfunction IV hydration with Normal saline Repeat orthostatic vitals (2) Weakness Conclusion/Plan: Patient will likely benefit form physical therapy PT consulted while in the hospital Social work consulted to help facilitate placement into [facility] (3) Pulmonary fibrosis Conclusion/Plan: Continue home breathing treatment (4) Restless leg syndrome Conclusion/Plan: On requip (5) Hypokalemia Conclusion/Plan: Will replace and recheck (6) Hypertension Conclusion/Plan: On amlodipine Qualifiers: Hypertension type: essential hypertension Qualified Code(s): I10 - Essential (primary) hypertension - Lab Results Fish Bones: 07/24/18 18:40 07/24/18 18:40 Core Measures - Anticipated LOS I expect patient to be DC'd or transferred within 96 hours.: Yes - DVT/VTE - Prophylaxis VTE/DVT Device ordered at admit?: Yes VTE/DVT Prophylaxis med ordered at admit?: Yes
[2018-07-25] MEDS ORDERED: POTASSIUM CHLORIDE 20 MEQ TABLET PO SCH (00:20)
[2018-07-25] MEDS: SODIUM CHLORIDE FLUSH 0.9% 10 ML SYRINGE IVP SCH ×3 (00:53→17:28)
[2018-07-25] MEDS: SODIUM CHLORIDE 0.9% 1,000 ML IV SCH ×3 (00:53→21:34)
[2018-07-25 06:40] LABS: BASOPHILS # (AUTO) 0.1 10^3/uL (0.0-0.1); EOSINOPHILS # (AUTO) 0.6 10^3/uL (0.0-0.7); EOSINOPHILS % (AUTO) 4.5 %; HGB - HEMOGLOBIN 13.8 g/dL (14.0-18.0); LYMPHOCYTES % (AUTO) 16.2 %; MEAN CORPUSCULAR HEMOGLOBIN 31.6 pg (27.0-31.0); MEAN CORPUSCULAR HGB CONC 33.1 g/dL (32.0-36.0); MEAN CORPUSCULAR VOLUME 95.4 fL (80.0-94.0); MEAN PLATELET VOLUME 7.1 fL (7.4-11.4); MONOCYTES % (AUTO) 8.3 %; NEUTROPHILS # (AUTO) 8.7 10^3/uL (1.5-6.6); PLT - PLATELET COUNT 350 10^3/uL (130-450); RED BLOOD COUNT 4.36 10^6/uL (4.70-6.10); RED CELL DISTRIBUTION WIDTH 13.3 % (12.0-15.0); WHITE BLOOD COUNT 12.4 x10^3/uL (4.8-10.8)
[2018-07-25 06:48] LABS: CALCIUM 8.4 mg/dL (8.5-10.3); CREATININE 0.4 mg/dL (0.6-1.2)
[2018-07-25] MEDS: POLYETHYLENE GLYCOL 3350 17 GM PACKET PO SCH (10:42)
[2018-07-25] MEDS ORDERED: rOPINIRole 0.25 MG TABLET PO PRN (11:07)
[2018-07-25] MEDS ORDERED: ALBUTEROL 6.7 GM INHALER INH SCH (11:07)
--- NOTE | 2018-07-25 11:12 | PROVIDER PROGRESS NOTE ---
Assessment/Plan - Problem List (1) Syncope Assessment/Plan: There was a remote history of frequent falls, at the last recent admission, he did not have orthostasis. Because of his severe drop in blood pressure, orthostasis is the likely cause of this syncopal event. He will be admitted to full inpatient status, to adjust medications, stop the amlodipine, start scheduled Midodrine, adjust med dose based on postural vital sign checks and his symptoms. Begin TEDS compressions stockings, their use was reviewed with patient. Continue telemetry. (2) Orthostasis Assessment/Plan: As in #1. (3) Dyspnea Qualifiers: Dyspnea type: shortness of breath Qualified Code(s): R06.02 - Shortness of breath; R06.00 - Dyspnea, unspecified; R06.01 - Orthopnea Assessment/Plan: Patient has known pulmonary fibrosis with pulmonary hypertension and mild cor pulmonale. At the last recent admission for pneumonia, he was discharged needing oxygen 02/11. His medications and supplemental oxygen will be continued. (4) Pulmonary fibrosis Assessment/Plan: As in #3. At the last recent admission, the patient was placed on IV Solu-Medrol and only developed insomnia and tremulousness. No steroids will be started currently. (5) FTT (failure to thrive) in adult Assessment/Plan: The patient may need more than Assisted Living, to which he was newly discharged after the last recent admission. He may need more help with his ADLs and medical care. Social Work to see. 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 - Current Meds Current Meds: Current Medications Generic Name Dose Route Start Last Admin Trade Name Freq PRN Reason Stop Dose Admin Sodium Chloride 1,000 mls @ 100 mls/hr 07/24/18 23:00 07/25/18 10:41 Normal Saline 0.9% IV 100 mls/hr .Q10H SHANELL Administration Polyethylene Glycol 17 gm 07/25/18 09:00 07/25/18 10:42 Miralax PO Not Given DAILY SHANELL Sodium Chloride 10 ml 07/25/18 01:00 07/25/18 10:43 Normal Saline Flush 0.9% IVP Not Given 0100,0900,1700 SHANELL - Lab Result Fish Bone Diagrams: 07/25/18 06:35 07/25/18 06:35 - Additional Planning My Orders: My Active Orders 07/25/18 11:05 Transfer [Admit \ Transfer \ Status] [RC] .ONCE 07/25/18 11:07 Albuterol Sulfate [Albuterol Sulfate Hfa] 8.5 gm IH QID PRN rOPINIRole [Requip] 0.25 mg PO QPM PRN 07/25/18 12:00 Docusate Sodium 250Mg Capsule [Colace 250Mg Capsule] 250 mg PO DAILY Midodrine 5 mg PO TIDWM 07/25/18 21:00 Amox/Clav 875/125 [Augmentin 875/125] 1 tab PO BID Fluconazole [Diflucan] 150 mg PO BID Fluticasone/Salmeterol [Advair 250-50 Diskus] 1 each IH BID Montelukast [Singulair] 10 mg PO QPM Saccharomyces Boulardii [Florastor] 250 mg PO BID 07/26/18 09:00 Ferrous Gluconate [Iron] 240 mg PO DAILY Polyethylene Glycol 3350 [Miralax] 17 gm PO DAILY Senna [Senokot] 8.6 mg PO DAILY Tiotropium [place] [Spiriva Respimat] 4 gm IH DAILY Subjective - Subjective Patient Reports: Shortness of Breath (Slight SOB if off his O2. He alrady finished his Augmentin and Diflucan for the recent pneumonia.) Nursing Reports: Other (Very orthostatic, unable to walk due to dizziness (lightheaededness) with PT) Objective Vital Signs: Vital Signs - 24 hr 07/24/18 07/24/18 07/24/18 17:55 18:46 19:14 Temperature 36.1 C L 36.1 C L Heart Rate 75 73 75 Heart Rate [ Sitting (After 1 Minute)] Heart Rate [ Sitting] Heart Rate [ Standing (After 1 Minute)] Heart Rate [ Standing] Heart Rate [ Supine] Respiratory 20 14 18 Rate Blood Pressure 138/63 H 128/69 133/64 H Blood Pressure [Right Brachial artery] Blood Pressure [Sitting (After 1 Minute)] Blood Pressure [Sitting] Blood Pressure [Standing ( After 1 Minute) ] Blood Pressure [Standing] Blood Pressure [Supine] O2 Saturation 98 100 100 07/24/18 07/24/18 07/24/18 19:42 19:43 21:25 Temperature Heart Rate Heart Rate [ Sitting (After 1 Minute)] Heart Rate [ 77 81 Sitting] Heart Rate [ Standing (After 1 Minute)] Heart Rate [ 77 88 Standing] Heart Rate [ 77 77 73 Supine] Respiratory Rate Blood Pressure Blood Pressure [Right Brachial artery] Blood Pressure [Sitting (After 1 Minute)] Blood Pressure 107/64 126/69 [Sitting] Blood Pressure [Standing ( After 1 Minute) ] Blood Pressure 105/51 L 125/63 [Standing] Blood Pressure 141/65 H 141/65 H 159/63 H [Supine] O2 Saturation 07/24/18 07/25/18 23:22 09:03 Temperature 36.9 C Heart Rate Heart Rate [ 79 Sitting (After 1 Minute)] Heart Rate [ Sitting] Heart Rate [ 89 Standing (After 1 Minute)] Heart Rate [ Standing] Heart Rate [ 73 Supine] Respiratory 16 Rate Blood Pressure Blood Pressure 107/81 H [Right Brachial artery] Blood Pressure 145/58 H [Sitting (After 1 Minute)] Blood Pressure [Sitting] Blood Pressure 110/53 L [Standing ( After 1 Minute) ] Blood Pressure [Standing] Blood Pressure 148/62 H [Supine] O2 Saturation 99 Oxygen O2 Source [With Activity] Nasal cannula O2 Source Nasal cannula I&O (Last 24 Hrs): Intake and Output Totals x24h 07/23/18 07/24/18 07/25/18 23:59 23:59 23:59 Intake Total 1000 2400 Output Total 300 1600 Balance 700 800 General: Alert HEENT: Mucous membr. moist/pink Neck: Supple Neuro: Non Focal, Other (R arm deformed and weak.) Cardiovascular: Other (Distant heart sounds.) Respiratory: Other (Fine velcro rales at posterior bases, R>L.) Abdomen: Soft Extremities: No edema - Results Results: Laboratory Results WBC 12.4 x10^3/uL (4.8-10.8) H 07/25/18 06:35 RBC 4.36 10^6/uL (4.70-6.10) L 07/25/18 06:35 Hgb 13.8 g/dL (14.0-18.0) L 07/25/18 06:35 Hct 41.6 % (42.0-52.0) L 07/25/18 06:35 MCV 95.4 fL (80.0-94.0) H 07/25/18 06:35 MCH 31.6 pg (27.0-31.0) H 07/25/18 06:35 MCHC 33.1 g/dL (32.0-36.0) 07/25/18 06:35 RDW 13.3 % (12.0-15.0) 07/25/18 06:35 Plt Count 350 10^3/uL (130-450) 07/25/18 06:35 MPV 7.1 fL (7.4-11.4) L 07/25/18 06:35 Neut # (Auto) 8.7 10^3/uL (1.5-6.6) H 07/25/18 06:35 Lymph # (Auto) 2.0 10^3/uL (1.5-3.5) 07/25/18 06:35 [place] # (Auto) 1.0 10^3/uL (0.0-1.0) 07/25/18 06:35 Eos # (Auto) 0.6 10^3/uL (0.0-0.7) 07/25/18 06:35 Baso # (Auto) 0.1 10^3/uL (0.0-0.1) 07/25/18 06:35 Absolute Nucleated RBC 0.01 x10^3/uL 07/25/18 06:35 Nucleated RBC % 0.1 /100WBC 07/25/18 06:35 PT 12.3 secs (9.9-12.6) 07/24/18 18:40 INR 1.1 (0.8-1.2) 07/24/18 18:40 Sodium 139 mmol/L (135-145) 07/25/18 06:35 Potassium 3.9 mmol/L (3.5-5.0) 07/25/18 06:35 Chloride 105 mmol/L (101-111) 07/25/18 06:35 Carbon Dioxide 26 mmol/L (21-32) 07/25/18 06:35 Anion Gap 8.0 (6-13) 07/25/18 06:35 BUN 9 mg/dL (6-20) 07/25/18 06:35 Creatinine 0.4 mg/dL (0.6-1.2) L 07/25/18 06:35 Estimated GFR (MDRD) 204 (>89) 07/25/18 06:35 Glucose 98 mg/dL (70-100) 07/25/18 06:35 Lactic Acid 0.8 mmol/L (0.5-2.2) 07/24/18 18:40 Calcium 8.4 mg/dL (8.5-10.3) L 07/25/18 06:35 Total Bilirubin 0.8 mg/dL (0.2-1.0) 07/24/18 18:40 AST 16 IU/L (10-42) 07/24/18 18:40 ALT 16 IU/L (10-60) 07/24/18 18:40 Alkaline Phosphatase 77 IU/L (42-121) 07/24/18 18:40 Troponin I < 0.04 ng/mL (<0.49) 07/24/18 18:40 Total Protein 6.3 g/dL (6.7-8.2) L 07/24/18 18:40 Albumin 3.0 g/dL (3.2-5.5) L 07/24/18 18:40 Globulin 3.3 g/dL (2.1-4.2) 07/24/18 18:40 Albumin/Globulin Ratio 0.9 (1.0-2.2) L 07/24/18 18:40 Lipase 48 U/L (22-51) 07/24/18 18:40
[2018-07-25] MEDS ORDERED: DOCUSATE SODIUM 250 MG CAPSULE PO SCH (12:00)
[2018-07-25] MEDS ORDERED: ALBUTEROL NEB 2.5 MG/3 ML INH PRN (12:45)
[2018-07-25] MEDS: MIDODRINE 2.5 MG TABLET PO SCH ×2 (13:20→17:28)
[2018-07-25] MEDS ORDERED: FLUCONAZOLE 100 MG TABLET PO SCH (21:00)
[2018-07-25] MEDS ORDERED: SACCHAROMYCES BOULARDII 250 MG CAPSULE PO SCH (21:00)
[2018-07-25] MEDS ORDERED: MONTELUKAST 10 MG TABLET PO SCH (21:00)
[2018-07-25] MEDS ORDERED: BUDESONIDE 0.5 MG/2 ML NEB INH SCH (21:00)
[2018-07-25] MEDS ORDERED: AMOX/CLAV 875 MG/125 MG TABLET PO SCH (21:00)
[2018-07-25] MEDS ORDERED: IBUPROFEN 400 MG TABLET PO PRN (23:08)
[2018-07-26] MEDS: SODIUM CHLORIDE FLUSH 0.9% 10 ML SYRINGE IVP SCH ×2 (02:25→08:20)
[2018-07-26 05:55] LABS: BASOPHILS # (AUTO) 0.1 10^3/uL (0.0-0.1); BASOPHILS % (AUTO) 1.1 %; EOSINOPHILS # (AUTO) 0.6 10^3/uL (0.0-0.7); EOSINOPHILS % (AUTO) 5.4 %; HGB - HEMOGLOBIN 13.4 g/dL (14.0-18.0); LYMPHOCYTES # (AUTO) 2.2 10^3/uL (1.5-3.5); LYMPHOCYTES % (AUTO) 20.8 %; MEAN CORPUSCULAR HEMOGLOBIN 31.5 pg (27.0-31.0); MEAN CORPUSCULAR HGB CONC 32.6 g/dL (32.0-36.0); MEAN CORPUSCULAR VOLUME 96.6 fL (80.0-94.0); MEAN PLATELET VOLUME 7.7 fL (7.4-11.4); MONOCYTES # (AUTO) 1.1 10^3/uL (0.0-1.0); MONOCYTES % (AUTO) 10.5 %; NEUTROPHILS # (AUTO) 6.6 10^3/uL (1.5-6.6); NEUTROPHILS % (AUTO) 62.2 %; PLT - PLATELET COUNT 333 10^3/uL (130-450); RED BLOOD COUNT 4.25 10^6/uL (4.70-6.10); RED CELL DISTRIBUTION WIDTH 13.3 % (12.0-15.0); WHITE BLOOD COUNT 10.6 x10^3/uL (4.8-10.8)
[2018-07-26 05:57] LABS: CALCIUM 8.5 mg/dL (8.5-10.3); CREATININE 0.4 mg/dL (0.6-1.2)
[2018-07-26] MEDS: SODIUM CHLORIDE 0.9% 1,000 ML IV SCH (07:38)
[2018-07-26] MEDS: POLYETHYLENE GLYCOL 3350 17 GM PACKET PO SCH (08:20)
[2018-07-26] MEDS: MIDODRINE 2.5 MG TABLET PO SCH ×2 (08:20→13:07)
[2018-07-26] MEDS ORDERED: FERROUS GLUCONATE 324 MG TABLET PO SCH (09:00)
[2018-07-26] MEDS ORDERED: IPRATROPIUM 0.2 MG/ML NEB INH SCH (09:00)
[2018-07-26] MEDS ORDERED: SENNA 8.6 MG TABLET PO SCH (09:00)
[2018-07-26] MEDS ORDERED: POLYETHYLENE GLYCOL 3350 17 GM PACKET PO SCH (09:00)
--- NOTE | 2018-07-26 11:38 | Discharge Plan ---
"Discharge Plan for SNF / [facility] - Discharge Plan And Transition Orders Disposition: 03 SNF DC/Xfer Condition: Stable Allergies and Adverse Reactions: Allergies Allergy/AdvReac Type Severity Reaction Status Date / Time morphine Allergy Emesis Verified 07/24/18 17:59 - SNF / ASSISTED Transition Orders Admit to (Facility): [facility] Discharge Diagnosis: 1. Orthostatic syncope 2. Generalized weakness and deconditioning 3. Pulmonary fibrosis with hypoxia 4. Restless leg syndrome 5. Essential hypertension 6. Benign prostatic hypertrophy 7. Right lung community-acquired pneumonia, possible aspiration with treatment, discharged July 21, 2018 8. Chronic hearing loss 9. 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 Notify PCP of admission and forward orders to primary provider for signature. Weight on admission and: Weekly Other Notification Orders: Call PCP immediately if patient develops dyspnea, chest pain/tightness or edema. House Bowel Program: Yes Additional Bowel Program Orders: If no BM after 2 days, nurse may give M.O.M. 30ml PO PRN and/or ducolax Supp 1 CA and/or MERARY 250mg P.O., and/or senna 1-2 tabs PO. On day 3 nurse may give repeat above order until residents constipation is resolved. Annual Influenza Vaccine (between Dec 11 and July 10): Yes Two-step PPD per [facility] [phone] or approved exception documents: Yes Treatments & Other Orders: 1. Albuterol via nebulizer 2.5 mg/3 mils 4 times daily as needed wheezing. 2. Pulmicort 0.5 mg via inhalation solution twice daily Oxygen Orders: Oxygen by nasal cannula to keep O2 sats greater than 90% and less than 92% Medication Orders: PLEASE REFER TO THE DISCHARGE MEDICATION LIST. Insulin Orders?: No - Diet Type: Geriatric Texture: Dysphagia mech Liquids: Thin May have monthly special meal: Yes - Therapies | Activity Therapy: Evaluation | Treat if indicated: Speech, PT, OT Rehabilitation Potential: Maximize functional status Activity: Activity as Tolerated Weight Bearing: Full Weight Assistance Devices: Wheelchair, Walker Additional Instructions: This is a isabelle gentleman who was living alone in his own home in [place]. Unfortunately he has been deteriorating with regards to his diagnosis of pulmona ry hypertension and pulmonary fibrosis. He was recently admitted to [facility] on July 17 for right lung pneumonia that was possibly aspiration. Discharged to an assisted living facility on July 21. He returned to the hospital July 24 because of orthostatic syncope. His amlodipine was discontinued and he is now on Midrin. Blood pressure today: 1. Supine 139/59 with pulse 66 2. Sitting 130/56 with pulse 74 3. Standing 110/53 with pulse 81 Follow Up: 1. FELI Lincoln through Palliative Care 2. Collin Rosa MD his PCP"
[2018-07-26] MEDS ORDERED: BUDESONIDE 0.5 MG/2 ML NEB INH ONE (12:00)
[2018-07-26 12:46] VITALS: BP 145/55
--- NOTE | 2018-08-03 22:33 | DISCHARGE SUMMARY ---
Physician: Gayla Villanueva MD DATE OF ADMISSION: 07/25/2018 DATE OF DISCHARGE: 07/26/2018 PRIMARY CARE PROVIDER: Collin Rosa MD. DISCHARGE DIAGNOSES 1. Orthostatic syncope. 2. Chronic respiratory failure with hypoxemia. 3. Dyspnea on exertion. 4. Pulmonary fibrosis. 5. Postpolio syndrome. 6. Adult failure to thrive. DISCHARGE MEDICATIONS 1. Acetaminophen 650 mg every 6 hours as needed. 2. Vitamin D 2000 units daily. 3. Colace 250 mg daily. 4. Ibuprofen 400 mg every 8 hours as needed. 5. MiraLax 17 gm daily. 6. Requip 0.25 mg every evening. 7. Senna 8.6 mg tablet daily. 8. Albuterol via nebulizer 4 times a day as needed. 9. Pulmicort 0.5 mg via inhaler device b.i.d. 10. Iron 240 mg daily. 11. Midodrine 5 mg t.i.d. 12. Singulair 10 mg daily. 13. Multivitamin daily. 14. [place]-3 fish oil 1000 mg daily. 15. Spiriva Respimat 4 gm inhalation daily. PRINCIPAL PROCEDURES: Chest x-ray with chronic interstitial fibrosis. No evidence of acute cardiopulmonary abnormality. HOSPITAL COURSE: This is a isabelle gentleman who has progressive pulmonary fibrosis. He has been steadily deteriorating because of this for probably 4-5 years, but whose deterioration had escalated over the last several months. He was just in the hospital for right lung community-acquired pneumonia, possible aspiration with treatment and discharged 07/21/2018. He was discharged to [facility]. He was not able to go back home again because of his weakened condition and felt that it might be time for him to transition to a safer place. Palliative Care has already met him, and they will be transitioning him earlier rather than later to hospice. Prior to living at [facility], he lived in his own home in [place]. While at [facility], he had remained stable. No new infectious components, no new change in medications. He had stood up from a chair he was sitting in to go to the bathroom, and the next thing he knew he was waking up on the floor. He vaguely remembers falling, not feeling well, but does not remember much after that. There was no urinary incontinence. Syncope was not witnessed. He had a previous echocardiogram that already showed a grade 1 diastolic dysfunction, ejection fraction 65%-70%. It was noted that he completed treatment for pneumonia, and was very weak during this admission, still hypoxic. His usual medications were resumed. Orthostatics were checked, and he was definitely orthostatic and most likely was felt to have orthostatic syncope. RERE hose were religiously used. Patient was told why he needed to use RERE hose. His outpatient medicines were adjusted in the inpatient setting, such as stopping amlodipine and starting midodrine. He did not require any changes in oxygen. He was given some steroids to help with his respiratory failure and fibrosis. He was felt to have failure to thrive. The assisted living facility felt that he would not be able to return to them and as such needed rehabilitation. On the day of discharge, he is still slightly short of breath. His orthostatics laying down were 139/59 with a pulse of 66. In the chair, he was 130/76 with a pulse 74. Standing, he was 110/53 with a pulse of 81. He was alert, oriented. Frail, weak. Not happy at the idea of getting rehabilitation to jail facility. He is an alert educated intelligent gentleman. Able to converse normally. PHYSICAL EXAMINATION NECK: Supple. LUNGS: Diffuse faint crackles. Diminished breath sounds at the bases. When he gets up to sit and then tries to stand, he does get tachypneic. HEART: PMI is normally placed with a regular rate and rhythm. ABDOMEN: Soft, nontender. EXTREMITIES: No edema is present. He is very hard of hearing, and it is noted that he has some paralysis and flaccidity of right greater than left legs because of his post-polio. The leg is atrophied. It requires a 2-person assist to get him to stand. Greater than 30 minutes was spent coordinating discharge. [facility]. He will be followed up by his primary care provider. Continued on palliative care therapy when he returns to an assisted living facility, if he returns to assisted living facility. It is hoped that he can get enough rehab to do so and gain some quality time. cc: Collin Rosa MD TD: 08/03/2018 16:32 MTDD
== END 2018-07-26 14:45 | DRG 312 ==
LOC: EDUNIT# → ED 17:50 → OBS 22:48 → OBSVTOIN 07-25 11:05 → MS2 07-25 17:10
PROVIDERS: ADMIT Internal Medicine; ATTEND Internal Medicine
DX: R55 Syncope and collapse (principal); I95.1 Orthostatic hypotension; J96.11 Chronic respiratory failure with hypoxia; R26.9 Unspecified abnormalities of gait and mobility; G81.94 Hemiplegia, unspecified affecting left nondominant side; R26.0 Ataxic gait; B91 Sequelae of poliomyelitis; J84.10 Pulmonary fibrosis, unspecified; E87.6 Hypokalemia; I10 Essential (primary) hypertension; I27.23 Pulmonary hypertension due to lung diseases and hypoxia; G25.81 Restless legs syndrome; R06.02 Shortness of breath; R62.7 Adult failure to thrive; Z68.29 Body mass index [BMI] 29.0-29.9, adult; E86.9 Volume depletion, unspecified; N40.0 Benign prostatic hyperplasia without lower urinary tract symptoms; H91.90 Unspecified hearing loss, unspecified ear; Z66 Do not resuscitate; Z51.5 Encounter for palliative care; Z79.51 Long term (current) use of inhaled steroids; Z91.81 History of falling
CPT/HCPCS: 36415; 71046; 80048; 80053; 83605; 83690; 84484; 85025; 85610; 93005; 93306; 94640; 96360; 96361; 97161; 97165; 99284; A9270; G0378; J7120; J7613; J7626; 99283

== ENCOUNTER 2019-05-13 07:21 | Outpatient (CLI) | payer MEDICARE, BC | END 2019-05-13 07:22 | disposition critical access hospital (66) | LOC: EMS 07:21 | PROVIDERS: ATTEND Surgery | DX: R07.9 Chest pain, unspecified (principal); R05 Cough | CPT/HCPCS: A0425; A0427 ==

== ENCOUNTER 2019-05-13 07:35 | Emergency (ER) | payer MEDICARE, BC ==
[2019-05-13] MEDS ORDERED: ALBUTEROL NEB 2.5 MG/3 ML INH STA (07:59)
--- NOTE | 2019-05-13 08:02 | ED Physician Documentation ---
PD HPI DYSPNEA - Stated complaint Stated Complaint: CP - History obtained from History obtained from: Patient - History of Present Illness Timing - onset: Yesterday Timing - onset during: Rest (The patient has a history of pulmonary fibrosis and has some baseline dyspnea. He stays mainly in the house and walks around with a cane. He uses a cane in his left hand at his as his right hand was atrophied from polio when he was 2 years old. His legs work pretty well. There is slight weakness of the right leg. He stays mainly in his house and has neighbors who go to the store for him. He had not noticed any base increase in his baseline dyspnea per se until yesterday when he started feeling a little more short of breath and had a cough and some green productive sputum. He states he increased cough overnight and then this morning he felt an onset of pain and pressure in his left chest. He felt a bit more short of breath. He denied any fever or chills.), Light activity Timing - duration: Days (1) Timing - details: Gradual onset, Still present Inciting event(s): URI (He developed some cough with some green sputum starting yesterday.) Improved by: O2 (He has home oxygen that he uses at night for sleep as needed. He does not usually use it during the day.), Rest, Sitting up Worsened by: Coughing Associated symptoms: Cough, Wheezing, Chest pain / discomfort (This morning). No: Fever, Hemoptysis Similar symptoms before: Diagnosis (He states he did have a spontaneous pneumothorax with coughing hard to 3 years ago and was in [facility] for several days with a chest tube.) Recently seen: Not recently seen Review of Systems Constitutional: reports: Fatigue, Weight Loss (20 pounds over the last 8 months. He states he has poor appetite. He does have food available in the house.). denies: Fever, Chills, Myalgias Nose: denies: Rhinorrhea / runny nose, Congestion Throat: denies: Sore throat Cardiac: denies: Palpitations, Pedal edema, Calf pain Respiratory: reports: Dyspnea, Cough GI: denies: Abdominal Pain, Nausea, Vomiting, Diarrhea Skin: denies: Rash, Lesions Musculoskeletal: denies: Extremity swelling Neurologic: reports: Generalized weakness. denies: Near syncope, Headache Endocrine: denies: Easy bruising / bleeding Immunocompromised: denies: Immunocompromised PD PAST MEDICAL HISTORY - Past Medical History Cardiovascular: Hypertension Respiratory: Shortness of breath, Other (Pulmonary fibrosis of uncertain etiology. He states he had pulmonary function tests and had very minimal COPD changes as well.) Neuro: None, Other (Right arm atrophy and palsy from polio at age 2) Endocrine/Autoimmune: None GI: None : Benign prostate hypertrophy HEENT: Chronic hearing loss Psych: None Musculoskeletal: None, Other Derm: None - Past Surgical History Past Surgical History: Yes General: Appendectomy HEENT: Cataracts - Present Medications Home Medications: Ambulatory Orders Medication Instructions Recorded Confirmed Acetaminophen 650 mg PO Q6H PRN 07/25/18 07/25/18 Cholecalciferol (Vitamin D3) 2,000 unit PO DAILY 07/25/18 07/25/18 [Vitamin D3] Docusate Sodium [Dss] 250 mg PO DAILY PRN 07/25/18 07/25/18 Ibuprofen 400 mg PO Q8H PRN 07/25/18 07/25/18 Senna [Senokot] 8.6 mg PO DAILY PRN 07/25/18 07/25/18 polyethylene glycoL 3350 [Miralax] 17 gm PO DAILY PRN 07/25/18 07/25/18 rOPINIRole [Requip] 0.25 mg PO QPM PRN 07/25/18 07/25/18 Albuterol 2.5 mg INH QID PRN neb 07/26/18 Budesonide [Pulmicort] 0.5 mg INH RTBID [facility] 07/26/18 Ferrous Gluconate [Iron] 240 mg PO DAILY #30 tablet 07/26/18 07/25/18 Midodrine 5 mg PO TIDWM tablet 07/26/18 Montelukast [Singulair] 10 mg PO QPM #30 tablet 07/26/18 07/25/18 Multivitamin [Multiple Vitamins] 1 tab PO DAILY #0 07/26/18 07/25/18 [place]-3 Fatty Acids/Fish Oil 1,000 mg PO DAILY #0 07/26/18 07/25/18 [[place]-3 Fish Oil 1,000 mg Sfgl] Tiotropium [place] [Spiriva 4 gm IH DAILY #30 mist.inhal 07/26/18 07/25/18 Respimat] - Allergies Allergies/Adverse Reactions: Allergies Allergy/AdvReac Type Severity Reaction Status Date / Time morphine Allergy Emesis Verified 05/13/19 07:56 - Living Situation Living Situation: reports: Alone Living Arrangement: reports: At home - Social History Does the pt smoke?: No Smoking Status: Former smoker Does the pt drink ETOH?: No Does the pt have substance abuse?: No - Immunizations Immunizations are current?: Yes - POLST Patient has POLST: Yes POLST Status: DNR PD ED PE NORMAL - Vitals Vital signs reviewed: Yes (Oxygen saturation 93% on NC 4 lpm.) - General General: Alert and oriented X 3, No acute distress, Well developed/nourished - HEENT HEENT: Moist mucous membranes, Pharynx benign - Neck Neck: Supple, no meningeal sign, No adenopathy - Cardiac Cardiac: RRR, No murmur - Respiratory Respiratory: No: Clear bilaterally (He has cellophane sounding fibrotic changes on both sides. Breath sounds are somewhat diminished on the left. There is no coarse sounds noted.) - Abdomen Abdomen: Soft, Non tender - Back Back: No CVA TTP - Derm Derm: Normal color, Warm and dry - Extremities Extremities: No tenderness to palpate, Normal ROM s pain, No edema, No calf tenderness / cord - Neuro Neuro: Alert and oriented X 3, No motor deficit, No sensory deficit, Normal speech Results - Vitals Vitals: Vital Signs - 24 hr 05/13/19 05/13/19 05/13/19 07:45 08:20 09:33 Temperature 36.4 C L Heart Rate 88 83 82 Respiratory 22 20 28 H Rate Blood Pressure 129/78 139/69 H O2 Saturation 93 94 05/13/19 05/13/19 05/13/19 11:00 12:44 13:00 Temperature Heart Rate 71 79 80 Respiratory 18 18 17 Rate Blood Pressure 130/56 L 152/67 H 154/63 H O2 Saturation 99 99 99 Oxygen O2 Source [With Activity] Nasal cannula O2 Source Nasal cannula Oxygen Flow Rate 4 - EKG (time done) 07:42 Rate: Rate (enter#) (92) Rhythm: NSR Holly: Normal Intervals: Normal MS QRS: Normal Ischemia: Normal ST segments. No: ST elevation c/w ischemia, ST depression - Labs Labs: Laboratory Tests 05/13/19 05/13/19 05/13/19 08:23 08:23 08:23 WBC 10.6 RBC 4.06 L Hgb 13.1 L Hct 40.6 L MCV 100.0 H MCH 32.3 H MCHC 32.3 RDW 13.1 Plt Count 270 MPV 9.9 Neut # (Auto) 7.5 H Lymph # (Auto) 1.9 [place] # (Auto) 0.9 Eos # (Auto) 0.2 Baso # (Auto) 0.0 Absolute Nucleated RBC 0.00 Nucleated RBC % 0.0 Sodium 140 Potassium 3.6 Chloride 102 Carbon Dioxide 27 Anion Gap 11.0 BUN 14 Creatinine 0.5 L Estimated GFR (MDRD) 158 Glucose 113 H Calcium 8.7 Magnesium 2.0 Total Bilirubin 0.9 AST 19 ALT 14 Alkaline Phosphatase 81 Troponin I High Sens 9.5 B-Natriuretic Peptide Total Protein 6.7 Albumin 3.1 L Globulin 3.6 Albumin/Globulin Ratio 0.9 L Lipase 31 05/13/19 08:23 WBC RBC Hgb Hct MCV MCH MCHC RDW Plt Count MPV Neut # (Auto) Lymph # (Auto) [place] # (Auto) Eos # (Auto) Baso # (Auto) Absolute Nucleated RBC Nucleated RBC % Sodium Potassium Chloride Carbon Dioxide Anion Gap BUN Creatinine Estimated GFR (MDRD) Glucose Calcium Magnesium Total Bilirubin AST ALT Alkaline Phosphatase Troponin I High Sens B-Natriuretic Peptide 79 Total Protein Albumin Globulin Albumin/Globulin Ratio Lipase - Rads (name of study) chest xray Radiology: Prelim report reviewed (30 to 40% pneumothorax on the left. Diffuse fibrotic changes noted.), Discussed with rads, See rad report chest post tube Radiology: Prelim report reviewed (The chest lung is reexpanded with fibrotic and some atelectatic changes noted.), See rad report PD MEDICAL DECISION MAKING - ED course Complexity details: considered differential (Consider bronchitis versus pneumonia versus exacerbation of some COPD that might underlie his fibrosis though he states he has had PFTs showing minimal COPD. Consider pneumothorax as he has had one in the past.), d/w patient, d/w healthcare economics consultant (Consulted with Dr. Rico Romo on for surgery who came to evaluate the patient in place the chest tube drainage. Refer to a separate note. I talked also with the hospitalist. The concurrence between the surgery and hospitalist was the patient needed a close watching and a level of care consistent with ICU at our hospital and we do not have any beds available. They recommended transfer.) ED course: The patient was feeling improved with the catheter in place and easier breathing. His saturations remained good. His vitals are good. His breathing also improved with nebulizer and he was feel a little bit less wheezy. I updated him on the need for transfer and the other consideration in this was potential evaluation by thoracic surgery given his second spontaneous pneumothorax. At this point he is not sure if he would want to undergo the pleurodesis type procedure. I talked with the hospitalist at [facility] who was in agreement for transfer and accepted the patient. Departure - Departure Disposition: 02 Transfer Acute Care Hosp Clinical Impression: Pulmonary fibrosis, Pneumothorax, acute Upper respiratory infection Qualifiers: URI type: unspecified URI Qualified Code(s): J06.9 - Acute upper respiratory infection, unspecified Condition: Stable Record reviewed to determine appropriate education?: Yes Discharge Date/Time: 05/13/19 13:30
[2019-05-13 08:30] LABS: BASOPHILS % (AUTO) 0.4 %; EOSINOPHILS # (AUTO) 0.2 10^3/uL (0.0-0.7); EOSINOPHILS % (AUTO) 1.8 %; HGB - HEMOGLOBIN 13.1 g/dL (14.0-18.0); LYMPHOCYTES # (AUTO) 1.9 10^3/uL (1.5-3.5); LYMPHOCYTES % (AUTO) 18.3 %; MEAN CORPUSCULAR HEMOGLOBIN 32.3 pg (27.0-31.0); MEAN CORPUSCULAR HGB CONC 32.3 g/dL (32.0-36.0); MEAN PLATELET VOLUME 9.9 fL (7.4-11.4); MONOCYTES # (AUTO) 0.9 10^3/uL (0.0-1.0); MONOCYTES % (AUTO) 8.5 %; NEUTROPHILS # (AUTO) 7.5 10^3/uL (1.5-6.6); NEUTROPHILS % (AUTO) 70.5 %; PLT - PLATELET COUNT 270 10^3/uL (130-450); RED BLOOD COUNT 4.06 10^6/uL (4.70-6.10); RED CELL DISTRIBUTION WIDTH 13.1 % (12.0-15.0); WHITE BLOOD COUNT 10.6 x10^3/uL (4.8-10.8)
[2019-05-13 08:42] LABS: ALBUMIN 3.1 g/dL (3.2-5.5); ALBUMIN/GLOBULIN RATIO 0.9 (1.0-2.2); BILIRUBIN,TOTAL 0.9 mg/dL (0.2-1.0); CALCIUM 8.7 mg/dL (8.5-10.3); CREATININE 0.5 mg/dL (0.6-1.2); TOTAL PROTEIN 6.7 g/dL (6.7-8.2)
--- NOTE | 2019-05-13 09:28 | XRAY Report ---
Reason: dyspnea/ cough Procedure Date: 05/13/2019 Accession Number: [id number] / [id number] Procedure: XR - Chest 2 View X-Ray CPT Code: 85969 Final Report FULL RESULT: EXAM: CHEST RADIOGRAPHY EXAM DATE: 05/13/2019 09:06 AM. CLINICAL HISTORY: Dyspnea/ cough. COMPARISON: CHEST 2 VIEW 07/24/2018 6:14 PM. TECHNIQUE: 2 views. FINDINGS: Lungs/Pleura: There is a new moderate to large left pneumothorax with moderate left pneumothorax with pleural separation above the apex of 2.8 cm, lateral to the lung apex 3.5 cm and at the costophrenic angle 3.8 cm. There is evidence of rightward mediastinal shift consistent with a tension pneumothorax. Left pulmonary opacity is mildly increased and likely represents a combination of known chronic interstitial lung disease plus atelectasis. The peripheral right mid and upper lung opacity/infiltrates are mildly increased. No rosa elena pleural effusion. Mediastinum: Heart and mediastinal contours are unremarkable. Other: None. IMPRESSION: 1. Moderate to large left pneumothorax with evidence of rightward mediastinal shift consistent with tension pneumothorax. 2. Increased left lung opacity consistent with a combination of pre-existing chronic interstitial lung disease plus probable atelectasis. 3. Increased peripheral right upper lung pulmonary opacities. RADIA The critical result notification system was initiated by Dr. Sree Pal at 09:21 AM on 05/13/2019. The above critical result findings were discussed with Herberth Quintanilla by Dr. Sree Pal at 09:24 AM on 05/13/2019.
[2019-05-13] MEDS ORDERED: HYDROmorphone 1 MG/ML CARPUJECT IVP STA ×2 (09:35→12:21)
[2019-05-13] MEDS ORDERED: ONDANSETRON 4 MG/2 ML VIAL IVP STA (09:35)
[2019-05-13] MEDS ORDERED: LIDOCAINE MPF 1%-EPI 1:200000 10 ML VIAL SUBQ STA (09:35)
[2019-05-13] MEDS ORDERED: cefTRIAXone 1 GM VIAL IVP STA (10:16)
[2019-05-13] MEDS ORDERED: AZITHROMYCIN INJ 500 MG in SODIUM CHLORIDE 0.9% 250 ML IV STA (10:16)
[2019-05-13] MEDS ORDERED: DEXAMETHASONE 10 MG/ML VIAL IVP STA (10:16)
[2019-05-13] MEDS ORDERED: SODIUM CHLORIDE 0.9% 1,000 ML IV ONE (10:16)
--- NOTE | 2019-05-13 10:24 | XRAY Report ---
Reason: S/P CHEST TUBE PLACEMENT Procedure Date: 05/13/2019 Accession Number: [id number] / [id number] Procedure: XR - Chest for Line Placement CPT Code: Final Report FULL RESULT: EXAM: CHEST RADIOGRAPHY EXAM DATE: 05/13/2019 10:12 AM. CLINICAL HISTORY: S/P CHEST TUBE PLACEMENT. COMPARISON: CHEST 2 VIEW 05/13/2019 8:46 AM. TECHNIQUE: 1 view. FINDINGS: Lungs/Pleura: Interval placement of a left chest tube/catheter with marked decrease in size of the left pneumothorax. Small residual pneumothorax has maximum pleural separation at the apex of 1 cm. No evidence of mediastinal shift. Left greater and right bilateral pulmonary opacities redemonstrated. No rosa elena pleural effusion. Mediastinum: Within exam limitations, the cardiomediastinal contour is normal. Other: None. IMPRESSION: 1. Interval chest tube/catheter placement with marked decrease in size of left pneumothorax and resolution of the previous mediastinal shift. Small persistent pneumothorax with apical pleural separation of 1 cm. 2. Left greater than right bilateral pulmonary opacities redemonstrated. RADIA
--- NOTE | 2019-05-13 10:45 | CONSULTATION NOTE ---
Referring Provider Name of Referring Provider:: Dr. Quintanilla Consult Date: 05/13/19 Chief Complaint - Chief Complaint Chief Complaint: dyspnea History of Present Illness - Admitted From Admitted From:: ER - History Obtained From Records Reviewed: yes History obtained from: pt, records Exam Limitations: none - History of Present Illness HPI Comment/Other: 84 yo male with hx severe pulmonary fibrosis on home O2 who had a coughing episode last night followed by the onset of progressively worsening dyspnea, prompting ER evaluation this morning. He reports a similar episode approximately one year ago where a spontaneous pneumothorax was diagnosed and he was treated for several days with a closed tube thoracostomy. Evaluation in the ER this morning with a Chest xray shows a large left pneumothorax with left to right shift consistent with a tension pneumothorax. Surgical consultation was requested. History - Past Medical History Cardiovascular: reports: Hypertension Respiratory: reports: Shortness of breath, Other (pulmonary fibrosis) Neuro: reports: Other (RLS) Endocrine/Autoimmune: reports: None GI: reports: None : reports: Benign prostate hypertrophy HEENT: reports: Chronic hearing loss Psych: reports: None Musculoskeletal: reports: None, Other Derm: reports: None MRSA Hx?: No Other Past Medical History: Pulmonary fibrosis. Polio - Past Surgical History General: reports: Appendectomy HEENT: reports: Cataracts - Family & Social History Family History: Mother: (62 heart failure, mother old age), Blood Disease/Disorder (throat, other brother complications of atrial fibrillation), Father: , Brother: Blood Disease/Disorder Living arrangement: At home Social History Notes: Born and raised in [place]. Came to [place] when he was a young child. 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 They never had any children and she of cancer approximately 20-25 years ago. He has lived in the same home since then. [employer] is his primary social support. He rarely drinks. Has not really drunk anything at all in 25 years. He never smoked and does not have any history of recreational substance abuse. - Substance History Use: Uses substance without health or social issues: NONE - POLST Patient has POLST: Yes POLST Status: DNR Meds/Allgy - Home Medications Home Medications: Ambulatory Orders Medication Instructions Recorded Confirmed Acetaminophen 650 mg PO Q6H PRN 07/25/18 07/25/18 Cholecalciferol (Vitamin D3) 2,000 unit PO DAILY 07/25/18 07/25/18 [Vitamin D3] Docusate Sodium [Dss] 250 mg PO DAILY PRN 07/25/18 07/25/18 Ibuprofen 400 mg PO Q8H PRN 07/25/18 07/25/18 Senna [Senokot] 8.6 mg PO DAILY PRN 07/25/18 07/25/18 polyethylene glycoL 3350 [Miralax] 17 gm PO DAILY PRN 07/25/18 07/25/18 rOPINIRole [Requip] 0.25 mg PO QPM PRN 07/25/18 07/25/18 Albuterol 2.5 mg INH QID PRN neb 07/26/18 Budesonide [Pulmicort] 0.5 mg INH RTBID [facility] 07/26/18 Ferrous Gluconate [Iron] 240 mg PO DAILY #30 tablet 07/26/18 07/25/18 Midodrine 5 mg PO TIDWM tablet 07/26/18 Montelukast [Singulair] 10 mg PO QPM #30 tablet 07/26/18 07/25/18 Multivitamin [Multiple Vitamins] 1 tab PO DAILY #0 07/26/18 07/25/18 [place]-3 Fatty Acids/Fish Oil 1,000 mg PO DAILY #0 07/26/18 07/25/18 [[place]-3 Fish Oil 1,000 mg Sfgl] Tiotropium [place] [Spiriva 4 gm IH DAILY #30 mist.inhal 07/26/18 07/25/18 Respimat] - Allergies Allergies/Adverse Reactions: Allergies Allergy/AdvReac Type Severity Reaction Status Date / Time morphine Allergy Emesis Verified 05/13/19 07:56 Review of Systems - Respiratory Respiratory: reports: Cough, Orthopnea, SOB at rest, SOB with exertion, Pleuritic pain Exam - Vital Signs Reviewed Vital Signs: Yes Vital Signs: Vital Signs x48h Temp Pulse Resp BP Pulse Ox 05/13/19 09:33 82 28 H 139/69 H 94 05/13/19 08:20 83 20 05/13/19 07:45 36.4 C L 88 22 129/78 93 - Physical Exam General Appearance: positive: Alert, Moderate distress, Anxious Eyes Bilateral: positive: No scleral icterus ENT: positive: ENT inspection nml, Pharynx nml, No signs of dehydration Neck: positive: No JVD, Trachea midline. negative: Lymphadenopathy (R), Lymphadenopathy (L) Respiratory: positive: Chest non-tender, Other (markedly diminished breath sounds on the left anteriorly). negative: Breath sounds nml Cardiovascular: positive: Regular rate & rhythm, No murmur, No gallop Abdomen: positive: Non-tender, No distention. negative: Hepatomegaly, Splenomegaly, Mass Skin: positive: Color nml, No rash, Warm, Dry. negative: Cyanosis Extremities: positive: No pedal edema Neurologic/Psychiatric: positive: Oriented x3 Conclusion and Plan - Lab Results Laboratory Results 05/13/19 08:23: B-Natriuretic Peptide 79 05/13/19 08:23: Troponin I High Sens 9.5 05/13/19 08:23: Sodium 140, Potassium 3.6, Chloride 102, Carbon Dioxide 27, Anion Gap 11.0, BUN 14, Creatinine 0.5 L, Estimated GFR (MDRD) 158, Glucose 113 H, Calcium 8.7, Magnesium 2.0, Total Bilirubin 0.9, AST 19, ALT 14, Alkaline Phosphatase 81, Total Protein 6.7, Albumin 3.1 L, Globulin 3.6, Albumin/Globulin Ratio 0.9 L, Lipase 31 05/13/19 08:23: WBC 10.6, RBC 4.06 L, Hgb 13.1 L, Hct 40.6 L, MCV 100.0 H, MCH 32.3 H, MCHC 32.3, RDW 13.1, Plt Count 270, MPV 9.9, Neut # (Auto) 7.5 H, Lymph # (Auto) 1.9, [place] # (Auto) 0.9, Eos # (Auto) 0.2, Baso # (Auto) 0.0, Absolute Nucleated RBC 0.00, Nucleated RBC % 0.0 - Diagnostic Imaging Results Diagnostic Imaging Results: positive: Final report reviewed, Read independently Diagnostic Imaging Results Comments: see HPI - Diagnosis Diagnosis: Spontaneous left pneumothorax, recurrent, in a patient with underlying pulmonary fibrosis, with evidence of tension radiographically, but not clinically at this time. - Plan Plan: Closed tube thoracostomy using a Thora-vent device. Given his severe underlying lung disease, I recommend ICU admission or transfer to facility with capability for VATS therapy. Discussed with patient who will consider whether he wishes thoracic surgical consultation.
--- NOTE | 2019-05-13 11:05 | PROCEDURE REPORT ---
Hospitalist Procedure Note - Procedure Note Procedure Note: Left Closed tube thoracostomy Note After informed consent, pt was placed in 30 degrees HOB position supine on the ER stretcher, his left anterior chest wall was prepped with Chloroprep and draped in the usual sterile fashion. 10 ml of 1% lidocaine with epi was used for local infiltration anesthesia. A lang was made in the skin approximately 3 mm in length. A 13 F Thera-vent device was used, placing the catheter in the second intercostal space mid clavicular line into the pleural space without difficulty. The device was secured to the skin with the adhesive flaps and 2 3-0 nylon sutures. A syringe with a 3 way stopcock was used to manually evacuate the air from the pleural space. The red button was seen to fluctuate normally with respirations at the completion of the procedure. Breath sounds were now equal. A F/u chest xray showed almost complete expansion of the left lung and the catheter in satisfactory position in the pleural space. Pt tolerated the procedure well without apparent complications.
[2019-05-13] MEDS ORDERED: KETOROLAC 15 MG/ML VIAL IVP STA (12:22)
[2019-05-13 13:12] VITALS: BP 154/63
== END 2019-05-13 13:30 | disposition short-term general hospital (02) ==
LOC: EDUNIT# → ED 07:35
DX: J93.0 Spontaneous tension pneumothorax (principal); J84.10 Pulmonary fibrosis, unspecified; J06.9 Acute upper respiratory infection, unspecified; I10 Essential (primary) hypertension; G83.21 Monoplegia of upper limb affecting right dominant side; B91 Sequelae of poliomyelitis; Z87.891 Personal history of nicotine dependence; Z66 Do not resuscitate
CPT/HCPCS: 32551; 36415; 71046; 80053; 83690; 83735; 83880; 84484; 85025; 93005; 94640; 96365; 96366; 96375; 96376; 99285; J1170; J3490; 71045

== ENCOUNTER 2019-05-13 13:36 | Outpatient (CLI) | payer MEDICARE, BC | END 2019-05-13 13:37 | disposition short-term general hospital (02) | LOC: EMS 13:36 | PROVIDERS: ATTEND Surgery | DX: J93.9 Pneumothorax, unspecified (principal); J40 Bronchitis, not specified as acute or chronic | CPT/HCPCS: A0425; A0426 ==